=== PATIENT | female | born 1970 | race Hispanic/Latino ===

== ENCOUNTER → 2017-08-05 | Day surgery (SDC) | payer OTHER ==
[~2017-08-05] MED LIST: ATORVASTATIN CA20 MG PO; CEFAZOLIN SOD 1 GM VIAL ONE; DEXAMETHASONE SOD PHOS INJ 4 MG/ML VIAL ONE; DIOVAN160 MG PO; FARXIGA PO; FENTANYL CITRATE/PF 100MCG/2 ML INJ ONE; HYDROCHLOROTHIA25 MG PO; IOPAMIDOL 610MG/1ML 300 MG/ML VIAL IV ONE; LIDOCAINE HCL 2% LOCAL INJ 5 ML SDV VIAL INJ ONE; METFORMIN HCL500 MG PO; MIDAZOLAM HCL 2 MG/2 ML VIAL ONE; MUPIROCIN 2% OINT 22 GM TUBE ONE; ONDANSETRON HCL INJ 2 MG/ML VIAL ONE; PROPOFOL IV EMULSION 10 MG/ML 20 ML VIAL ONE; SEVOFLURANE INHAL SOLN 250 ML PEN BTL ONE
--- NOTE | 2017-08-05 17:07 | Operative Report ---
DATE OF PROCEDURE: August 05, 2017 PREOPERATIVE DIAGNOSES 1. Impacted stone in the upper ureter on the left side. 2. Left cutaneous nephrostomy. 3. Hydronephrosis on the left side. POSTOPERATIVE DIAGNOSES 1. Impacted stone in the upper ureter on the left side. 2. Left cutaneous nephrostomy. 3. Hydronephrosis on the left side. OPERATION PERFORMED: 1. Extracorporeal shock wave lithotripsy of left kidney stones. 2. Cystoscopy, left retrograde pyelogram and attempt to pass a wire and place a double J stent on the left side. 3. Interpretation of x-ray. Radiologist not present. 4. Supervision of fluoroscopy. BARBER STYLIST: None. ANESTHESIA: General. CLINICAL INDICATION NOTE: This is a 47-year-old patient who has an impacted stone in the upper ureter near the ureteropelvic junction. The stone is quite large, 2 x 1.5 cm. Attempt to pass a double J by the stone over wire from below was not successful. Attempt by interventional radiology to pass anything from above was also not successful. Patient was brought for lithotripsy with hope that if stone will be fragmented it may be possible to pass a double J stent from below, and the patient so advised. DESCRIPTION OF PROCEDURE AND FINDINGS: After appropriate level of anesthesia was achieved, the patient was placed in supine position and treated with 3000 shocks. Initially the first 300 were at a rate of 60 per minute and then it was increased to 90 and eventually to 120 per minute. After completing the lithotripsy, patient was placed in lithotomy position, prepped and draped in sterile fashion. Urethra inspected and is unremarkable. is normal. Bladder mucosa is normal. Open-end catheter was inserted to the left side and retrograde pyelogram did not pass . There was complete impaction of the stone. No contrast could be passed by the stone. Multiple attempts to inject dye and to try to pass very soft wires were not successful. Following this, a nephrostogram was done demonstrating hydronephrosis and again no contrast could be passed by the stone. Patient tolerated procedure well and was transferred in satisfactory condition to recovery room. Additional procedure will be planned to try to render her stone free. Job#: [id number]
== END | disposition home or self-care (01) ==
LOC: OR 09:15
PROVIDERS: ATTEND Urology
DX: N20.1 Calculus of ureter (principal); Z93.6 Other artificial openings of urinary tract status; N13.30 Unspecified hydronephrosis; I10 Essential (primary) hypertension; E11.9 Type 2 diabetes mellitus without complications
CPT/HCPCS: 36415; 50590; 81025; 82948; J0690; J1100; J2001; J2250; J2405; Q9967

== ENCOUNTER 2017-08-06 12:27 | Inpatient (IN) | payer OTHER ==
[2017-08-05 19:50] VITALS: BP 94/60
[~2017-08-06] VITALS: Ht 160 cm; Wt 74.9 kg
[~2017-08-06 12:27] MED LIST changes: -CEFAZOLIN SOD 1 GM VIAL ONE; -DEXAMETHASONE SOD PHOS INJ 4 MG/ML VIAL ONE; -FENTANYL CITRATE/PF 100MCG/2 ML INJ ONE; -IOPAMIDOL 610MG/1ML 300 MG/ML VIAL IV ONE; -LIDOCAINE HCL 2% LOCAL INJ 5 ML SDV VIAL INJ ONE; -MIDAZOLAM HCL 2 MG/2 ML VIAL ONE; -MUPIROCIN 2% OINT 22 GM TUBE ONE; -ONDANSETRON HCL INJ 2 MG/ML VIAL ONE; -PROPOFOL IV EMULSION 10 MG/ML 20 ML VIAL ONE; -SEVOFLURANE INHAL SOLN 250 ML PEN BTL ONE
[2017-08-06] MEDS ORDERED: ACETAMINOPHEN 325 MG TAB PO ONE (13:15)
[2017-08-06 14:51] LABS: BASOPHILS % 0.2 % (0.0-1.0); HEMATOCRIT 39.2 % (34.2-44.1); HEMOGLOBIN 13.5 g/dL (12.0-16.0); LYMPHOCYTES # (AUTO) 0.8 (1.0-3.2); MEAN CORPUSCULAR HEMOGLOBIN 30.4 pg (28-32); MEAN CORPUSCULAR HGB CONC 34.4 g/dL (31-35); MEAN CORPUSCULAR VOLUME 88.3 fL (81-99); MONOCYTES # (AUTO) 0.8 (0.2-0.8); MONOCYTES % 5.1 % (4.4-11.3); NEUTROPHILS # (AUTO) 14.5 (2.1-6.9); NEUTROPHILS % 89.4 % (38.7-80.0); PLATELET COUNT 217 x10e3/uL (140-360); RED BLOOD COUNT 4.44 x10e6/uL (3.6-5.1)
[2017-08-06 14:52] LABS: BILIRUBIN,URINE NEGATIVE (NEGATIVE); KETONES,URINE 3+ (NEGATIVE); LEUKOCYTE ESTERASE ,URINE 2+ (NEGATIVE); NITRITE,URINE NEGATIVE (NEGATIVE); URINE UROBILINOGEN 0.2 mg/dL (0.2 - 1)
[2017-08-06 14:53] LABS: CLARITY,URINE CLOUDY (CLEAR); COLOR,URINE YELLOW (YELLOW); PROTEIN,URINE DIPSTICK 2+ (NEGATIVE)
[2017-08-06 15:02] LABS: ALANINE AMINOTRANSFERASE 8 IU/L (0-55); ALBUMIN 3.9 g/dL (3.5-5.0); ALBUMIN/GLOBULIN RATIO 1.1 (0.8-2.0); ALKALINE PHOSPHATASE 81 IU/L (40-150); ANION GAP 16.8 mmol/L (8-16); BLOOD UREA NITROGEN 13 mg/dL (7-26); BUN/CREATININE RATIO 15 (6-25); CALCIUM 9.3 mg/dL (8.4-10.2); CARBON DIOXIDE 19 mmol/L (22-29); CHLORIDE 102 mmol/L (98-107); CREATININE, SERUM 0.85 mg/dL (0.57-1.11); EST GLOMERULAR FILTRATION RATE > 60 ML/MIN (60-); GLUCOSE 150 mg/dL (74-118); POTASSIUM 3.8 mmol/L (3.5-5.1); SODIUM 134 mmol/L (136-145)
[2017-08-06 15:28] LABS: BACTERIA,URINE MANY /HPF; EPITHELIAL CELLS,URINE FEW /LPF
--- NOTE | 2017-08-06 16:17 | Diagnostic Imaging Report ---
EXAM: CT Abdomen and Pelvis WITHOUT contrast INDICATION: Kidney stone. Fever and chills. COMPARISON: None. TECHNIQUE: Abdomen and pelvis were scanned utilizing a multidetector helical scanner from the lung base to the pubic symphysis without administration of IV contrast. Absence of intravenous contrast decreases sensitivity for detection of focal lesions and vascular pathology. Coronal and sagittal reformations were obtained. Renal stone protocol was performed. IV CONTRAST: None. ORAL CONTRAST: Water RADIATION DOSE: Total DLP: 507.76 mGy*cm Estimated effective dose: (DLP x 0.015 x size factor) mSv COMPLICATIONS: None FINDINGS: LINES and TUBES: Left sided nephrostomy tube with distal tip coiled within the left renal pelvis. LOWER THORAX: Bibasilar subsegmental atelectasis. HEPATOBILIARY: No focal hepatic lesions. No biliary ductal dilation. GALLBLADDER: No radio-opaque stones or sludge. No wall thickening. SPLEEN: No splenomegaly. PANCREAS: No focal masses or ductal dilatation. ADRENALS: No adrenal nodules KIDNEYS/URETERS: Left sided nephrostomy tube with distal tip coiled within the left renal pelvis. There is a 1.6 cm lobulated calculus within the left UPJ on coronal image 58 series 400, with possible adjacent smaller calculi. There is gas within the left lower pole collecting system likely related to the presence of nephrostomy tube and recent instrumentation. There is left perinephric stranding without perinephric fluid collections. GI TRACT: No abnormal distention, wall thickening, or evidence of bowel obstruction. Appendix is normal. PELVIC ORGANS/BLADDER: Unremarkable. LYMPH NODES: No lymphadenopathy. VESSELS: Unremarkable. PERITONEUM / RETROPERITONEUM: No free air or fluid. BONES: Unremarkable. SOFT TISSUES: Unremarkable. IMPRESSION: 1. 1.6 cm left UPJ renal calculus without hydronephrosis likely due to the presence of a left nephrostomy tube. Gas within the left lobe lower pole collecting system likely related to the presence of the nephrostomy tube and/or recent instrumentation. 2. Left perinephric stranding is a nonspecific finding which may be related to recent obstruction or recent percutaneous nephrostomy tube placement, however, superimposed infection cannot be excluded in this patient's clinical syndrome narrowing. No perinephric fluid collections. Signed by: Dr. Temo Grigsby M.D. on 08/06/2017 4:13 PM
[2017-08-06] MEDS ORDERED: CEFEPIME HCL 2 GM VIAL IV STA (16:53)
[2017-08-06] MEDS ORDERED: SODIUM CHLORIDE 0.9% 1000 ML BAG IV STA (16:54)
[2017-08-06] MEDS ORDERED: HYDROMORPHONE 1MG/1ML INJ IV PRN (17:15)
[2017-08-06] MEDS ORDERED: DEXTROSE 50% SYRINGE 50 ML IV PRN (17:15)
[2017-08-06] MEDS: ONDANSETRON HCL INJ 2 MG/ML VIAL IV PRN (19:50)
[2017-08-06 20:00] VITALS: BP 95/60
[2017-08-06] MEDS: SODIUM CHLORIDE 0.9% 1000ML 1,000 ML IV SCH (20:17)
[2017-08-06] MEDS: HYDROMORPHONE 2MG/ML INJ IV PRN (20:20)
[2017-08-06] MEDS: ACETAMINOPHEN 1000 MG/100 ML IV PRN (20:29)
[2017-08-06] MEDS: INSULIN REGULAR, HUMAN 100 UNIT/1 ML 3ML VIAL SQ SCH (21:00)
[2017-08-06 22:00] VITALS: BP 95/60
[2017-08-07] VITALS: BP 108/62
[2017-08-07 00:31] VITALS: BP 95/60
[2017-08-07] MEDS: SODIUM CHLORIDE 0.9% 1000ML 1,000 ML IV SCH ×3 (03:30→20:12)
[2017-08-07 04:00] VITALS: BP 110/91
[2017-08-07] MEDS: CEFEPIME HCL 2 GM VIAL IV SCH ×2 (05:50→17:00)
[2017-08-07] MEDS: ACETAMINOPHEN 1000 MG/100 ML IV PRN (06:02)
[2017-08-07 06:48] LABS: BASOPHILS % 0.3 % (0.0-1.0); HEMATOCRIT 33.7 % (34.2-44.1); HEMOGLOBIN 11.2 g/dL (12.0-16.0); LYMPHOCYTES # (AUTO) 1.2 (1.0-3.2); LYMPHOCYTES % 8.2 % (18.0-39.1); MEAN CORPUSCULAR HEMOGLOBIN 30.3 pg (28-32); MEAN CORPUSCULAR HGB CONC 33.2 g/dL (31-35); MEAN CORPUSCULAR VOLUME 91.1 fL (81-99); MONOCYTES # (AUTO) 0.9 (0.2-0.8); MONOCYTES % 6.3 % (4.4-11.3); NEUTROPHILS # (AUTO) 12.1 (2.1-6.9); NEUTROPHILS % 84.7 % (38.7-80.0); PLATELET COUNT 169 x10e3/uL (140-360); RED CELL DISTRIBUTION WIDTH 13.2 % (11.7-14.4)
[2017-08-07 07:16] LABS: ANION GAP 17.9 mmol/L (8-16); BLOOD UREA NITROGEN 16 mg/dL (7-26); BUN/CREATININE RATIO 22 (6-25); CALCIUM 8.1 mg/dL (8.4-10.2); CARBON DIOXIDE 14 mmol/L (22-29); CHLORIDE 109 mmol/L (98-107); CREATININE, SERUM 0.72 mg/dL (0.57-1.11); EST GLOMERULAR FILTRATION RATE > 60 ML/MIN (60-); GLUCOSE 90 mg/dL (74-118); POTASSIUM 3.9 mmol/L (3.5-5.1); SODIUM 137 mmol/L (136-145)
[2017-08-07] MEDS: INSULIN REGULAR, HUMAN 100 UNIT/1 ML 3ML VIAL SQ SCH ×4 (07:30→20:12)
[2017-08-07 08:00] VITALS: BP 103/61
[2017-08-07 12:00] VITALS: BP 119/64
[2017-08-07 16:00] VITALS: BP 97/59
[2017-08-07] MEDS: ACETAMINOPHEN 325 MG TAB PO PRN (18:03)
[2017-08-07] MEDS: HYDROMORPHONE 2MG/ML INJ IV PRN (20:11)
[2017-08-07] MEDS: ONDANSETRON HCL INJ 2 MG/ML VIAL IV PRN (20:12)
[2017-08-08] VITALS (7 sets, daily range): BP systolic 102–118; BP diastolic 60–78
[2017-08-08] MEDS: ONDANSETRON HCL INJ 2 MG/ML VIAL IV PRN ×2 (04:45→16:08)
[2017-08-08] MEDS: HYDROMORPHONE 2MG/ML INJ IV PRN ×2 (04:50→16:10)
[2017-08-08] MEDS: SODIUM CHLORIDE 0.9% 1000ML 1,000 ML IV SCH ×3 (05:34→21:03)
[2017-08-08] MEDS: CEFEPIME HCL 2 GM VIAL IV SCH ×2 (05:50→16:13)
[2017-08-08] MEDS ORDERED: BISACODYL 5 MG TAB EC PO SCH (07:30)
[2017-08-08] MEDS: INSULIN REGULAR, HUMAN 100 UNIT/1 ML 3ML VIAL SQ SCH ×4 (07:30→21:30)
[2017-08-09] VITALS: BP 119/77
[2017-08-09] MEDS: SODIUM CHLORIDE 0.9% 1000ML 1,000 ML IV SCH ×3 (00:03→18:35)
[2017-08-09] MEDS: ONDANSETRON HCL INJ 2 MG/ML VIAL IV PRN (04:40)
[2017-08-09] MEDS: CEFEPIME HCL 2 GM VIAL IV SCH ×2 (04:40→16:59)
[2017-08-09] MEDS: HYDROMORPHONE 2MG/ML INJ IV PRN ×2 (04:41→17:04)
[2017-08-09] MEDS: INSULIN REGULAR, HUMAN 100 UNIT/1 ML 3ML VIAL SQ SCH ×4 (07:30→20:31)
[2017-08-09 08:00] VITALS: BP 112/66
[2017-08-09 12:00] VITALS: BP 122/75
[2017-08-09 20:00] VITALS: BP 127/80
[2017-08-10] VITALS (8 sets, daily range): BP systolic 100–127; BP diastolic 56–83
[2017-08-10] MEDS: SODIUM CHLORIDE 0.9% 1000ML 1,000 ML IV SCH ×2 (02:07→09:00)
[2017-08-10] MEDS: CEFEPIME HCL 2 GM VIAL IV SCH ×2 (05:34→16:59)
[2017-08-10] MEDS: INSULIN REGULAR, HUMAN 100 UNIT/1 ML 3ML VIAL SQ SCH ×4 (07:30→20:52)
[2017-08-10] MEDS ORDERED: BISACODYL 5 MG TAB EC PO PRN (07:30)
[2017-08-10] MEDS: NITROFURANTOIN MACROCRYSTALS 100 MG CAP PO SCH ×2 (08:50→16:59)
[2017-08-10] MEDS: ACETAMINOPHEN/CODEINE 300MG - 30MG TAB PO PRN ×2 (09:00→13:00)
[2017-08-10] MEDS: ONDANSETRON HCL INJ 2 MG/ML VIAL IV PRN ×2 (11:56→16:55)
[2017-08-10] MEDS ORDERED: HYDROMORPHONE 1MG/1ML INJ IV PRN (13:45)
[2017-08-10] MEDS: FENTANYL 25 MCG/HR PATCH TOP SCH (14:18)
[2017-08-10] MEDS: HYDROMORPHONE 2MG/ML INJ IV PRN ×2 (15:32→20:44)
[2017-08-10] MEDS: ACETAMINOPHEN 325 MG TAB PO PRN (15:58)
[2017-08-10 16:43] LABS: BASOPHILS % 0.4 % (0.0-1.0); EOSINOPHILS % 0.6 % (0.0-6.0); HEMATOCRIT 35.6 % (34.2-44.1); LYMPHOCYTES # (AUTO) 0.2 (1.0-3.2); LYMPHOCYTES % 3.7 % (18.0-39.1); MEAN CORPUSCULAR HEMOGLOBIN 29.9 pg (28-32); MEAN CORPUSCULAR HGB CONC 33.7 g/dL (31-35); MEAN CORPUSCULAR VOLUME 88.8 fL (81-99); MONOCYTES # (AUTO) 0.1 (0.2-0.8); MONOCYTES % 2.2 % (4.4-11.3); NEUTROPHILS % 92.9 % (38.7-80.0); PLATELET COUNT 195 x10e3/uL (140-360); RED BLOOD COUNT 4.01 x10e6/uL (3.6-5.1); RED CELL DISTRIBUTION WIDTH 13.2 % (11.7-14.4)
[2017-08-10 17:02] LABS: INR 0.92; PARTIAL THROMBOPLASTIN TIME 28.3 seconds (23.8-35.5); PROTHROMBIN TIME 12.8 seconds (11.9-14.5)
[2017-08-10 17:11] LABS: ALANINE AMINOTRANSFERASE 27 IU/L (0-55); ALBUMIN 2.7 g/dL (3.5-5.0); ALBUMIN/GLOBULIN RATIO 0.8 (0.8-2.0); ALKALINE PHOSPHATASE 82 IU/L (40-150); BLOOD UREA NITROGEN < 5 mg/dL (7-26); CALCIUM 8.4 mg/dL (8.4-10.2); CARBON DIOXIDE 22 mmol/L (22-29); CHLORIDE 109 mmol/L (98-107); CREATININE, SERUM 0.63 mg/dL (0.57-1.11); EST GLOMERULAR FILTRATION RATE > 60 ML/MIN (60-); GLUCOSE 140 mg/dL (74-118); SODIUM 141 mmol/L (136-145)
[2017-08-10 17:12] LABS: BUN/CREATININE RATIO 8 (6-25)
[2017-08-10] MEDS ORDERED: POTASSIUM CHLORIDE 20 MEQ TAB CR PO STA (17:39)
[2017-08-10] MEDS ORDERED: FUROSEMIDE INJ 10 MG/ML 4 ML VIAL IV NR (18:00)
--- NOTE | 2017-08-10 18:03 | Diagnostic Imaging Report ---
PROCEDURE: A single AP view of the chest. COMPARISON: None. INDICATIONS: HYPOXIA FINDINGS: Lines/tubes: None. Lungs: Limited by body habitus and low lung volumes. Central peribronchovascular thickening/cuffing. Right midlung linear atelectasis/scarring. Pleura: There is no significant pleural effusion or pneumothorax. Heart and mediastinum: The cardiomediastinal silhouette is prominent. Bones: No acute bony abnormality. IMPRESSION: Central peribronchovascular thickening/cuffing with vascular congestion. Underlying infiltrate cannot be excluded. Dictated by: Rony Rhoades M.D. on 08/10/2017 at 18:12 Electronically approved by: Rony Rhoades M.D. on 08/10/2017 at 18:12
[2017-08-10 20:13] LABS: LYMPHOCYTES % (MANUAL) 4 % (19-48); METAMYELOCYTES % (MANUAL) 2 % (0-0); MONOCYTES % (MANUAL) 8 % (3.4-9.0); NEUTROPHILS % (MANUAL) 84 % (40-74)
[2017-08-10 20:14] LABS: PLATELET ESTIMATE ADEQUATE; PLATELET MORPHOLOGY COMMENT NORMAL; RBC MORPHOLOGY COMMENT NORMAL
[2017-08-10] MEDS: PIPER-TAZ 3.375 GM 50 ML IV SCH (20:44)
[2017-08-11] VITALS (7 sets, daily range): BP systolic 97–122; BP diastolic 58–73
[2017-08-11] MEDS: PIPER-TAZ 3.375 GM 50 ML IV SCH ×3 (05:43→21:10)
[2017-08-11] MEDS: ACETAMINOPHEN 325 MG TAB PO PRN (06:01)
[2017-08-11] MEDS: INSULIN REGULAR, HUMAN 100 UNIT/1 ML 3ML VIAL SQ SCH ×4 (07:30→21:00)
[2017-08-11 08:16] LABS: BASOPHILS # (AUTO) 0.1 (0.0-0.1); BASOPHILS % 0.4 % (0.0-1.0); EOSINOPHILS # (AUTO) 0.2 (0.0-0.4); EOSINOPHILS % 1.4 % (0.0-6.0); HEMATOCRIT 30.1 % (34.2-44.1); LYMPHOCYTES # (AUTO) 0.9 (1.0-3.2); LYMPHOCYTES % 6.6 % (18.0-39.1); MEAN CORPUSCULAR HEMOGLOBIN 30.7 pg (28-32); MEAN CORPUSCULAR HGB CONC 34.6 g/dL (31-35); MEAN CORPUSCULAR VOLUME 88.8 fL (81-99); MONOCYTES # (AUTO) 0.7 (0.2-0.8); MONOCYTES % 4.7 % (4.4-11.3); PLATELET COUNT 183 x10e3/uL (140-360); RED BLOOD COUNT 3.39 x10e6/uL (3.6-5.1); RED CELL DISTRIBUTION WIDTH 13.2 % (11.7-14.4)
[2017-08-11 08:20] LABS: HEMOGLOBIN 10.4 g/dL (12.0-16.0)
[2017-08-11 08:29] LABS: INR 1.23; PROTHROMBIN TIME 16.1 seconds (11.9-14.5)
[2017-08-11 08:33] LABS: ANION GAP 11.9 mmol/L (8-16); BLOOD UREA NITROGEN 5 mg/dL (7-26); BUN/CREATININE RATIO 8 (6-25); CALCIUM 8.2 mg/dL (8.4-10.2); CARBON DIOXIDE 25 mmol/L (22-29); CHLORIDE 104 mmol/L (98-107); CREATININE, SERUM 0.63 mg/dL (0.57-1.11); EST GLOMERULAR FILTRATION RATE > 60 ML/MIN (60-); GLUCOSE 96 mg/dL (74-118); SODIUM 138 mmol/L (136-145)
[2017-08-11 08:37] LABS: POTASSIUM 2.9 mmol/L (3.5-5.1)
[2017-08-11] MEDS: NITROFURANTOIN MACROCRYSTALS 100 MG CAP PO SCH ×2 (08:49→16:51)
[2017-08-11] MEDS ORDERED: POTASSIUM CHLORIDE 20 MEQ TAB CR PO STA (09:08)
--- NOTE | 2017-08-11 09:43 | Diagnostic Imaging Report ---
PROCEDURE:X-RAY ABDOMEN - KUB COMPARISON:CT abdomen and pelvis 08/06/2017. INDICATIONS:PYELONEPHRITIS FINDINGS: Left nephrostomy catheter is present with the tip projecting over the expected region of the left renal pelvis. Calculi are present in the left renal pelvis. There is a non-obstructed bowel-gas pattern. There are no calcifications projected over the right renal shadow, expected course of the ureters or bladder. There are no acute osseous abnormalities. The lung bases are clear. CONCLUSION: Left nephrolithiasis. Left nephrostomy catheter. Dictated by: See Phipps M.D. on 08/11/2017 at 9:52 Electronically approved by: See Phipps M.D. on 08/11/2017 at 9:52
--- NOTE | 2017-08-11 13:46 | Consultation ---
DATE OF CONSULTATION: August 10, 2017 PULMONARY CONSULTATION REASON FOR CONSULTATION: Hypoxia. HPI: Ms. Meek is a 47-year-old female who was admitted for kidney stones and UTI. She was septic with UTI. Patient underwent nephrostomy tube placement. Her fever was 102. She failed stent attempt and was admitted with pyelonephritis. Patient was continued on IV antibiotics. Today I was called as patient is hypoxic. She is a lifelong nonsmoker. Denies any history of asthma. She does not smoke and does not drink. REVIEW OF SYSTEMS: GENERAL: Denies any fever or chills. HEAD: Denies any head trauma or head injury. ENT: Denies any earaches. CVS: Denies any chest pain. RESPIRATORY: Denies any shortness of breath. The patient was hypoxic. GI: Denies any nausea or vomiting. MUSCULOSKELETAL: Denies any arthralgias or myalgias. The rest of the review of systems are negative except in the HPI. PAST MEDICAL HISTORY: Diabetes, hypertension and hyperlipidemia. PAST SURGICAL HISTORY: Nephrostomy tube placement. FAMILY AND SOCIAL HISTORY: She does not smoke or drink. She lives with her . PHYSICAL EXAMINATION: VITALS: Temperature 100.9, pulse of 108, blood pressure 100/56 respiratory rate 18. HEENT: Head is atraumatic and normocephalic. Pupils are reactive. NECK: Supple. CHEST: Reduced air entry bilaterally, almost absent breath sounds on the bases. ABDOMEN: Soft, nontender and nondistended. EXTREMITIES: Trace pedal edema. NEUROLOGIC: Awake and alert. She has a nephrostomy tube. LABORATORY DATA: White count of 5,000, it was 16,000 on admission. Platelets 195. Chemistry: Sodium 141, potassium 3.0. BUN less than 5. Creatinine 0.63 and on admission creatinine was 0.85. I's and O's revealed that she is at least positive for 3 to 4 liters. Urine culture Enterobacter, E. coli faecalis. ASSESSMENT AND PLAN: Ms. Peggy Meek is a 47-year-old female. She came in with pyelonephritis. The patient had kidney stones. According to neurology note, the patient had failed stent attempt and nephrostomy was done. At this time, I think the hypoxia is likely due to fluid overload where she has developed pneumonia. There is no chest x-ray on the chart at this point. She was also getting IV fluid as well. PLAN: 1. I will give her Lasix IV 40 mg now. 2. Change the antibiotic to IV Zosyn. 3. Give one dose of vancomycin. 4. Nebulizer treatment. 5. Further recommendations after reviewing the chest x-ray. Job#: [id number] GH
[2017-08-11] MEDS ORDERED: POTASSIUM CHLORIDE 20 MEQ TAB CR PO SCH ×2 (15:00)
[2017-08-11] MEDS: HYDROCODONE/APAP 10MG-325MG TAB PO PRN ×2 (16:53→21:31)
[2017-08-12 00:50] VITALS: BP 107/63
[2017-08-12] MEDS: PIPER-TAZ 3.375 GM 50 ML IV SCH ×2 (05:21→16:00)
[2017-08-12 05:31] VITALS: BP 103/69
[2017-08-12 07:05] LABS: HEMATOCRIT 33.2 % (34.2-44.1); HEMOGLOBIN 11.1 g/dL (12.0-16.0); MEAN CORPUSCULAR HEMOGLOBIN 30.1 pg (28-32); MEAN CORPUSCULAR HGB CONC 33.4 g/dL (31-35); PLATELET COUNT 232 x10e3/uL (140-360); RED BLOOD COUNT 3.69 x10e6/uL (3.6-5.1); RED CELL DISTRIBUTION WIDTH 13.2 % (11.7-14.4)
[2017-08-12 07:26] LABS: ANION GAP 13.5 mmol/L (8-16); BLOOD UREA NITROGEN 6 mg/dL (7-26); BUN/CREATININE RATIO 10 (6-25); CALCIUM 9.2 mg/dL (8.4-10.2); CARBON DIOXIDE 27 mmol/L (22-29); CHLORIDE 102 mmol/L (98-107); CREATININE, SERUM 0.62 mg/dL (0.57-1.11); EST GLOMERULAR FILTRATION RATE > 60 ML/MIN (60-); GLUCOSE 142 mg/dL (74-118); MAGNESIUM 1.8 MG/DL (1.3-2.1); POTASSIUM 3.5 mmol/L (3.5-5.1); SODIUM 139 mmol/L (136-145)
[2017-08-12] MEDS: INSULIN REGULAR, HUMAN 100 UNIT/1 ML 3ML VIAL SQ SCH ×4 (07:30→21:00)
[2017-08-12 07:56] VITALS: BP 104/55
[2017-08-12] MEDS: NITROFURANTOIN MACROCRYSTALS 100 MG CAP PO SCH ×2 (09:00→16:24)
[2017-08-12 09:29] LABS: BLAST CELLS % MANUAL 1; EOSINOPHILS % (MANUAL) 9 % (0-7); LYMPHOCYTES % (MANUAL) 12 % (19-48); MONOCYTES % (MANUAL) 1 % (3.4-9.0); MYELOCYTES % (MANUAL) 1 % (0-0); NEUTROPHILS % (MANUAL) 76 % (40-74)
[2017-08-12 09:30] LABS: ANISOCYTOSIS SLIGHT; HOWELL-JOLLY BODIES FEW; PLATELET ESTIMATE ADEQUATE; PLATELET MORPHOLOGY COMMENT NORMAL; RBC MORPHOLOGY COMMENT NORMAL
[2017-08-12 11:37] VITALS: BP 113/69
[2017-08-12] MEDS: HYDROCODONE/APAP 10MG-325MG TAB PO PRN ×2 (12:01→21:54)
[2017-08-12] MEDS: ONDANSETRON HCL INJ 2 MG/ML VIAL IV PRN ×2 (12:01→21:54)
[2017-08-12] MEDS: ACETAMINOPHEN 325 MG TAB PO PRN ×2 (16:15→22:57)
[2017-08-12 16:25] VITALS: BP 161/81
--- NOTE | 2017-08-12 18:29 | Diagnostic Imaging Report ---
PROCEDURE: A single AP view of the chest. COMPARISON: Patients [facility], DX, CHEST SINGLE (PORTABLE), 08/10/2017, 17:56. INDICATIONS: PICC PLACEMENT FINDINGS: See impression. IMPRESSION: 1. interval placement of right-sided PICC line, with distal tip projecting near the cavoatrial junction. 2. Hypoinflated lungs with bibasilar atelectatic changes. There is obscuration of the medial left hemidiaphragm and left retrocardiac density, which may reflect atelectasis or consolidation. 3. Prominence of the cardiac silhouette, which is accentuated by low lung volumes. Dustin Benoit M.D. Dictated by: Dustin Benoit M.D. on 08/12/2017 at 18:38 Electronically approved by: Dustin Benoit M.D. on 08/12/2017 at 18:38
[2017-08-12] MEDS ORDERED: VANCOMYCIN 1GM/NS 250 ML 250 ML IV SCH (18:30)
[2017-08-12] MEDS ORDERED: FUROSEMIDE INJ 10 MG/ML 4 ML VIAL IV ONE (18:30)
[2017-08-12 20:00] VITALS: BP 119/77
[2017-08-12] MEDS: AMOXICILLIN 250 MG CAP PO SCH (20:09)
--- NOTE | 2017-08-12 23:20 | Consultation ---
DATE OF CONSULTATION: August 12, 2017 REASON FOR CONSULTATION: UTI. Recommendation antibiotic. HISTORY OF PRESENT ILLNESS: This is a 47-year-old female with history of kidney stone, history of UTI, history of sepsis. Patient apparently was admitted on August 06, 2017. Patient comes in with fever and chills. She had fever 102. She had nephrostomy tube placement and she failed stent attempt, was admitted with fever and chills, on IV antibiotic. Infectious disease was consulted today. This patient has history of diabetes mellitus, hypertension, hyperlipidemia. PAST SURGICAL HISTORY: Nephrostomy on the left. ALLERGIES: NKA. SOCIAL HISTORY: There is no smoking, drug abuse, alcohol abuse. FAMILY HISTORY: Otherwise unremarkable. LABORATORY DATA: Blood cultures are negative so far. Her urine showed Enterobacter cloacae and Enterococcus faecalis. White count is 15.1, went up 16.2, hemoglobin of 13, hematocrit 39. Sodium 139, potassium 3.5, creatinine 0.62. MEDICATIONS: She is on insulin, Macrobid, Zosyn, vancomycin. PHYSICAL EXAMINATION GENERAL: She is currently alert, oriented, does not seem to be in acute distress. VITALS: Stable. Currently afebrile. HEENT: She is not icteric. Normocephalic. NECK: Supple. No JVD, no , no thyromegaly. CHEST: Clear bilateral, coarse. HEART: S1, S2. murmur. ABDOMEN: Soft with some tenderness present. IMPRESSION: Urinary tract infection with Enterobacter cloacae. Would suggest to put her on Rocephin and 2 g daily. Will arrange for intravenous antibiotic. She will have a peripherally inserted central catheter line. Discontinue the antibiotic. I am concerned about her leukocytosis. Recheck complete blood count and chemistry panel. Will give her oral amoxicillin. She has nephrostomy tube, which is being addressed by urology. Will follow with you. Job#: [id number] CQ
[2017-08-13] VITALS: BP 103/67
[2017-08-13] MEDS: AMOXICILLIN 250 MG CAP PO SCH ×3 (05:45→21:50)
[2017-08-13] MEDS: INSULIN REGULAR, HUMAN 100 UNIT/1 ML 3ML VIAL SQ SCH ×4 (08:00→21:40)
[2017-08-13] MEDS: FUROSEMIDE INJ 10 MG/ML 4 ML VIAL IV SCH ×2 (08:30→17:45)
[2017-08-13] MEDS: CEFTRIAXONE SOD 1 GM VIAL IV SCH (08:45)
[2017-08-13] MEDS ORDERED: FUROSEMIDE INJ 10 MG/ML 4 ML VIAL IV SCH (09:00)
[2017-08-13 10:40] VITALS: BP 117/66
[2017-08-13] MEDS: FENTANYL 25 MCG/HR PATCH TOP SCH (14:20)
[2017-08-13 16:58] VITALS: BP 118/72
[2017-08-13 20:00] VITALS: BP 116/78
[2017-08-14] VITALS: BP 128/85
[2017-08-14 04:00] VITALS: BP 109/75
[2017-08-14] MEDS: AMOXICILLIN 250 MG CAP PO SCH ×3 (06:10→22:06)
[2017-08-14 06:42] LABS: BASOPHILS % 0.5 % (0.0-1.0); EOSINOPHILS # (AUTO) 0.6 (0.0-0.4); EOSINOPHILS % 9.9 % (0.0-6.0); HEMATOCRIT 35.9 % (34.2-44.1); LYMPHOCYTES # (AUTO) 2.2 (1.0-3.2); LYMPHOCYTES % 36.2 % (18.0-39.1); MEAN CORPUSCULAR HEMOGLOBIN 29.6 pg (28-32); MEAN CORPUSCULAR HGB CONC 33.4 g/dL (31-35); MEAN CORPUSCULAR VOLUME 88.4 fL (81-99); MONOCYTES # (AUTO) 0.5 (0.2-0.8); MONOCYTES % 8.6 % (4.4-11.3); NEUTROPHILS # (AUTO) 2.7 (2.1-6.9); NEUTROPHILS % 44.1 % (38.7-80.0); PLATELET COUNT 257 x10e3/uL (140-360); RED BLOOD COUNT 4.06 x10e6/uL (3.6-5.1); RED CELL DISTRIBUTION WIDTH 12.9 % (11.7-14.4)
[2017-08-14 07:07] LABS: ANION GAP 18.1 mmol/L (8-16); BLOOD UREA NITROGEN 12 mg/dL (7-26); BUN/CREATININE RATIO 19 (6-25); CALCIUM 9.8 mg/dL (8.4-10.2); CARBON DIOXIDE 29 mmol/L (22-29); CHLORIDE 95 mmol/L (98-107); CREATININE, SERUM 0.63 mg/dL (0.57-1.11); EST GLOMERULAR FILTRATION RATE > 60 ML/MIN (60-); GLUCOSE 128 mg/dL (74-118); POTASSIUM 3.1 mmol/L (3.5-5.1); SODIUM 139 mmol/L (136-145)
[2017-08-14] MEDS: INSULIN REGULAR, HUMAN 100 UNIT/1 ML 3ML VIAL SQ SCH ×4 (07:30→22:02)
[2017-08-14 08:00] VITALS: BP 123/70
[2017-08-14] MEDS: CEFTRIAXONE SOD 1 GM VIAL IV SCH (09:00)
[2017-08-14] MEDS: FUROSEMIDE INJ 10 MG/ML 4 ML VIAL IV SCH ×3 (09:00→22:07)
[2017-08-14] MEDS ORDERED: IOPAMIDOL 610MG/1ML 300 MG/ML VIAL IV ONE (10:53)
[2017-08-14] MEDS ORDERED: BELLADONNA/OPIUM 60 MG SUPP PR ONE (10:53)
[2017-08-14] MEDS ORDERED: MUPIROCIN 2% OINT 22 GM TUBE ONE (11:53)
[2017-08-14] MEDS ORDERED: SEVOFLURANE INHAL SOLN 250 ML PEN BTL ONE (14:55)
[2017-08-14] MEDS ORDERED: LIDOCAINE HCL 2% LOCAL INJ 5 ML SDV VIAL INJ ONE (14:55)
[2017-08-14] MEDS ORDERED: ONDANSETRON HCL INJ 2 MG/ML VIAL ONE (14:55)
[2017-08-14] MEDS ORDERED: DEXAMETHASONE SOD PHOS INJ 4 MG/ML VIAL ONE (14:55)
[2017-08-14] MEDS ORDERED: PROPOFOL IV EMULSION 10 MG/ML 20 ML VIAL ONE (14:55)
[2017-08-14 15:53] VITALS: BP 120/67
[2017-08-14] MEDS ORDERED: MIDAZOLAM HCL 2 MG/2 ML VIAL ONE (18:43)
[2017-08-14] MEDS ORDERED: FENTANYL CITRATE/PF 100MCG/2 ML INJ ONE (18:43)
[2017-08-14 20:23] VITALS: BP 104/68
[2017-08-15] VITALS (7 sets, daily range): BP systolic 121–129; BP diastolic 68–75
[2017-08-15] MEDS: FUROSEMIDE INJ 10 MG/ML 4 ML VIAL IV SCH ×3 (05:39→22:01)
[2017-08-15] MEDS: AMOXICILLIN 250 MG CAP PO SCH ×2 (05:39→14:00)
[2017-08-15] MEDS: HYDROCODONE/APAP 10MG-325MG TAB PO PRN (05:54)
[2017-08-15] MEDS: INSULIN REGULAR, HUMAN 100 UNIT/1 ML 3ML VIAL SQ SCH ×4 (07:30→22:36)
[2017-08-15 07:38] LABS: BASOPHILS % 0.3 % (0.0-1.0); EOSINOPHILS # (AUTO) 0.1 (0.0-0.4); EOSINOPHILS % 0.9 % (0.0-6.0); HEMATOCRIT 35.4 % (34.2-44.1); HEMOGLOBIN 12.2 g/dL (12.0-16.0); LYMPHOCYTES % 16.4 % (18.0-39.1); MEAN CORPUSCULAR HEMOGLOBIN 29.8 pg (28-32); MEAN CORPUSCULAR HGB CONC 34.5 g/dL (31-35); MEAN CORPUSCULAR VOLUME 86.6 fL (81-99); MONOCYTES # (AUTO) 0.9 (0.2-0.8); MONOCYTES % 7.4 % (4.4-11.3); NEUTROPHILS # (AUTO) 9.1 (2.1-6.9); NEUTROPHILS % 74.2 % (38.7-80.0); PLATELET COUNT 286 x10e3/uL (140-360); RED BLOOD COUNT 4.09 x10e6/uL (3.6-5.1); RED CELL DISTRIBUTION WIDTH 12.7 % (11.7-14.4)
[2017-08-15 08:05] LABS: ANION GAP 16.1 mmol/L (8-16); BLOOD UREA NITROGEN 12 mg/dL (7-26); BUN/CREATININE RATIO 16 (6-25); CALCIUM 9.1 mg/dL (8.4-10.2); CARBON DIOXIDE 29 mmol/L (22-29); CHLORIDE 95 mmol/L (98-107); CREATININE, SERUM 0.73 mg/dL (0.57-1.11); EST GLOMERULAR FILTRATION RATE > 60 ML/MIN (60-); GLUCOSE 202 mg/dL (74-118); MAGNESIUM 1.8 MG/DL (1.3-2.1); POTASSIUM 3.1 mmol/L (3.5-5.1); SODIUM 137 mmol/L (136-145)
[2017-08-15] MEDS: PANTOPRAZOLE SOD 40 MG TABEC PO SCH (08:45)
[2017-08-15] MEDS: CEFTRIAXONE SOD 1 GM VIAL IV SCH (09:00)
[2017-08-15] MEDS ORDERED: VANCOMYCIN 1GM/NS 250 ML 250 ML IV SCH (14:15)
--- NOTE | 2017-08-15 15:35 | Diagnostic Imaging Report ---
EXAM: CT Chest WITHOUT contrast 08/15/2017 2:09 PM INDICATION: \S\hypoxia ? Pneumonia COMPARISON: Chest radiograph from 08/12/2017 TECHNIQUE: Chest was scanned utilizing a multidetector helical scanner from the lung apex through the level of the adrenal glands without administration of IV contrast. Absence of intravenous contrast decreases sensitivity for detection of lymphadenopathy and vascular pathology. Coronal and sagittal reformations were obtained. Routine protocol was performed. IV CONTRAST: None COMPLICATIONS: None RADIATION DOSE: Total DLP: 423.2 mGy*cm Estimated effective dose: (DLP x 0.015 x size factor) mSv CTDIvol has been reviewed. It is below the limits set by the Radiation Protocol Committee (RPC). FINDINGS: LINES/ TUBES: Partially visualized right PICC with tip in the cavoatrial junction. LUNGS AND AIRWAYS: Moderate sized bilateral lower lobes consolidation with air bronchograms without significant volume loss suggestive of aspiration or pneumonia. Bilateral interstitial edema. Airways are normal. PLEURA: The pleural spaces are clear. HEART AND MEDIASTINUM: The thyroid gland is normal. No mediastinal, hilar or axillary lymphadenopathy. The left ventricle appears mildly prominent. Small pericardial effusion. The thoracic aorta and pulmonary arteries are unremarkable. UPPER ABDOMEN: There appears to be mild hydronephrosis on the left in this patient with prior obstructing renal stone. BONES: The visualized bony thorax is within normal limits. SOFT TISSUES: Unremarkable. IMPRESSION: Moderate sized bilateral lower lobe consolidations suggestive of pneumonia or aspiration. Signed by: Dr. Talia Rincon M.D. on 08/15/2017 3:32 PM
[2017-08-15] MEDS: PIPER-TAZ 3.375 GM 50 ML IV SCH (22:01)
[2017-08-16] VITALS (7 sets, daily range): BP systolic 109–123; BP diastolic 63–89
[2017-08-16] MEDS: HYDROCODONE/APAP 10MG-325MG TAB PO PRN (04:57)
[2017-08-16] MEDS: PIPER-TAZ 3.375 GM 50 ML IV SCH ×3 (05:06→21:48)
[2017-08-16] MEDS: FUROSEMIDE INJ 10 MG/ML 4 ML VIAL IV SCH ×3 (05:33→21:48)
[2017-08-16] MEDS: VANCOMYCIN 1GM/NS 250 ML 250 ML IV SCH ×2 (05:33→18:00)
[2017-08-16 06:50] LABS: BASOPHILS % 0.4 % (0.0-1.0); EOSINOPHILS # (AUTO) 0.3 (0.0-0.4); EOSINOPHILS % 3.3 % (0.0-6.0); HEMATOCRIT 37.7 % (34.2-44.1); HEMOGLOBIN 12.8 g/dL (12.0-16.0); LYMPHOCYTES % 30.2 % (18.0-39.1); MEAN CORPUSCULAR HEMOGLOBIN 29.7 pg (28-32); MEAN CORPUSCULAR VOLUME 87.5 fL (81-99); MONOCYTES # (AUTO) 0.8 (0.2-0.8); MONOCYTES % 8.2 % (4.4-11.3); NEUTROPHILS # (AUTO) 5.5 (2.1-6.9); NEUTROPHILS % 56.4 % (38.7-80.0); PLATELET COUNT 282 x10e3/uL (140-360); RED BLOOD COUNT 4.31 x10e6/uL (3.6-5.1); RED CELL DISTRIBUTION WIDTH 12.7 % (11.7-14.4)
[2017-08-16] MEDS: INSULIN REGULAR, HUMAN 100 UNIT/1 ML 3ML VIAL SQ SCH ×4 (07:30→21:49)
[2017-08-16] MEDS: PANTOPRAZOLE SOD 40 MG TABEC PO SCH (07:30)
[2017-08-16] MEDS: CEFTRIAXONE SOD 1 GM VIAL IV SCH (09:00)
[2017-08-16] MEDS ORDERED: SODIUM CHLORIDE 0.9% 250ML 250 ML ONE ×2 (13:43→21:40)
[2017-08-17 01:40] VITALS: BP 109/63
[2017-08-17 04:50] VITALS: BP 120/73
[2017-08-17] MEDS: FUROSEMIDE INJ 10 MG/ML 4 ML VIAL IV SCH (05:38)
[2017-08-17] MEDS: PIPER-TAZ 3.375 GM 50 ML IV SCH (05:38)
[2017-08-17 05:47] LABS: BASOPHILS # (AUTO) 0.1 (0.0-0.1); BASOPHILS % 0.7 % (0.0-1.0); EOSINOPHILS # (AUTO) 0.4 (0.0-0.4); EOSINOPHILS % 3.9 % (0.0-6.0); HEMATOCRIT 38.2 % (34.2-44.1); LYMPHOCYTES # (AUTO) 2.8 (1.0-3.2); LYMPHOCYTES % 28.3 % (18.0-39.1); MEAN CORPUSCULAR HEMOGLOBIN 29.7 pg (28-32); MEAN CORPUSCULAR VOLUME 87.4 fL (81-99); MONOCYTES # (AUTO) 0.8 (0.2-0.8); NEUTROPHILS # (AUTO) 5.6 (2.1-6.9); NEUTROPHILS % 57.9 % (38.7-80.0); PLATELET COUNT 273 x10e3/uL (140-360); RED BLOOD COUNT 4.37 x10e6/uL (3.6-5.1); RED CELL DISTRIBUTION WIDTH 12.8 % (11.7-14.4)
[2017-08-17 06:06] LABS: ALANINE AMINOTRANSFERASE 6 IU/L (0-55); ALBUMIN/GLOBULIN RATIO 0.7 (0.8-2.0); ALKALINE PHOSPHATASE 76 IU/L (40-150); ANION GAP 13.9 mmol/L (8-16); BLOOD UREA NITROGEN 13 mg/dL (7-26); BUN/CREATININE RATIO 16 (6-25); CALCIUM 9.1 mg/dL (8.4-10.2); CARBON DIOXIDE 29 mmol/L (22-29); CHLORIDE 96 mmol/L (98-107); CREATININE, SERUM 0.79 mg/dL (0.57-1.11); EST GLOMERULAR FILTRATION RATE > 60 ML/MIN (60-); GLUCOSE 168 mg/dL (74-118); SODIUM 136 mmol/L (136-145)
[2017-08-17 06:16] LABS: POTASSIUM 2.9 mmol/L (3.5-5.1)
[2017-08-17] MEDS ORDERED: POTASSIUM CHLORIDE 20 MEQ TAB CR PO ONE ×2 (06:45→10:00)
[2017-08-17] MEDS: VANCOMYCIN 1GM/NS 250 ML 250 ML IV SCH ×2 (06:50→17:30)
[2017-08-17] MEDS: PANTOPRAZOLE SOD 40 MG TABEC PO SCH (07:30)
[2017-08-17] MEDS: INSULIN REGULAR, HUMAN 100 UNIT/1 ML 3ML VIAL SQ SCH ×4 (07:30→20:45)
[2017-08-17 08:00] VITALS: BP 125/85
[2017-08-17] MEDS: CEFTRIAXONE SOD 1 GM VIAL IV SCH (09:00)
[2017-08-17 12:00] VITALS: BP 114/83
[2017-08-17 16:00] VITALS: BP 131/84
[2017-08-17 20:00] VITALS: BP 144/80
[2017-08-17] MEDS: CEFEPIME HCL 1 GM VIAL IV SCH (20:44)
[2017-08-18] VITALS: BP 127/61
[2017-08-18] MEDS: CEFEPIME HCL 1 GM VIAL IV SCH ×2 (02:30→10:00)
[2017-08-18 04:00] VITALS: BP 121/70
[2017-08-18] MEDS: VANCOMYCIN 1GM/NS 250 ML 250 ML IV SCH (05:17)
[2017-08-18 07:30] VITALS: BP 125/72
[2017-08-18] MEDS: INSULIN REGULAR, HUMAN 100 UNIT/1 ML 3ML VIAL SQ SCH (07:30)
[2017-08-18] MEDS: PANTOPRAZOLE SOD 40 MG TABEC PO SCH (07:30)
[2017-08-18 08:14] VITALS: BP 125/72
[2017-08-18 12:14] VITALS: BP 120/79
--- NOTE | 2017-09-21 17:17 | Consultation ---
DATE OF CONSULTATION: August 10, 2017 PAIN MANAGEMENT CONSULT REASON FOR FOLLOWUP: Pain management. SUBJECTIVE: The patient is a 47-year-old female with history of multiple issues, abdominal pain, ongoing pain with back pain and kidney stone in the past. She was being septic with urinary tract infection. She underwent nephrostomy tube placement, fever spike to 102 when she came in. She is a lifelong nonsmoker. Pain is 10/10 on the scale 0 to 10; 0 being none and 10 being worst. Pain is constant, aching, dull, sharp, shooting, burning, and stabbing pain. REVIEW OF SYSTEMS: Had some fever yesterday. Denies any head trauma or head injury. No seizure. No syncope. No ear problem. No chest pain. No shortness of breath. No nausea or vomiting. She does have generalized pain all over the body. Otherwise, rest of the review of systems are negative except as in the history of present illness. PAST MEDICAL HISTORY 1. Diabetes. 2. Hypertension. 3. Hyperlipidemia. 4. Morbid obesity. PAST SURGICAL HISTORY: Nephrostomy tube in place. FAMILY AND SOCIAL HISTORY: Does not smoke or drink. She lives with her . PHYSICAL EXAMINATION GENERAL: The patient is in pain, but not in acute distress. VITAL SIGNS: Within normal limits. HEENT: Normocephalic. NECK: Supple. LUNGS: Clear bilaterally. HEART: Regular rate and rhythm. ABDOMEN: Soft and nontender. EXTREMITIES: No edema. NEUROLOGIC: Grossly nonfocal. LAB DATA: Reviewed. ASSESSMENT AND PLAN: She is being managed her pain by Dr. Arya Mosley, who gave her pain medicine for the home use also and I am being consulted for the hospital due to excruciating pain. Patient was seen today and examined. Consult care plan discussed in detail. She does understand the care plan. Possibility of the opioid dependence cannot be ruled out. We will continue supportive care. We will follow her closely. Job#: [id number] VAS
--- NOTE | 2017-10-01 02:21 | Operative Report ---
DATE OF PROCEDURE: August 14, 2017 PREOPERATIVE DIAGNOSES 1. Large left proximal ureterolithiasis. 2. Left nephrostomy tube in place. POSTOPERATIVE DIAGNOSES 1. Large left proximal ureterolithiasis. 2. Left nephrostomy tube in place. 3. Cystocele. 4. Urethral hypermobility. OPERATIVE PROCEDURES PERFORMED: Note these were all staged procedures as part of multistage, multistep process in managing the patient's urolithiasis. 1. Cystourethroscopy with left ureteral catheterization and retrograde ureteropyelography with left ureteroscopy, Holmium laser lithotripsy and placement of stent (separate procedure performed for diagnosis of the stone). 2. Radiological services for supervision and interpretation of the ureteroscopy. 3. Supervision of fluoroscopy. No radiologist present. 4. Removal of nephrostomy under fluoroscopic guidance. 5. Interpretation of retrograde ureteropyelography. 6. Pelvic examination under anesthesia. ANESTHESIA: General. COMPLICATIONS: None. CLINICAL SUMMARY: Please refer to the chart. Peggy Meek is a woman with a complicated and impacted stone that was refractory to prior treatment attempt. She has a nephrostomy tube in place. The hopes today is to be able to remove her nephrostomy and replace it with an indwelling stent. She is aware of the risks of bleeding, infection, injury to adjacent structures, the fact that she will need temporary indwelling urethral stent and the fact that she will have to have followup. She understood all these risks and elected to proceed. OPERATIVE PROCEDURE IN DETAIL: Informed consent was verified. Peggy Meek was properly identified, taken to the operating room, placed on the cystoscopy table in supine position. Anesthesia was uneventfully begun. The patient was then carefully and gently repositioned in the dorsal lithotomy position with all pressure points well padded. Her genitalia were prepared and draped in usual sterile fashion. The 22.5-Lao cystoscope sheath with obturator in place was atraumatically inserted into the patient's urethra and the bladder was drained. Panendoscopy revealed no suspicious mucosal lesions. There were no tumors. There were no diverticula. We cannulated the left ureteral orifice. We were able to bring flexible ureteroscope over the guidewire. Contrast was injected performing retrograde pyelograms. We negotiated the ureteroscope to the level of the patient's very large and multiple proximal ureteral stones. We proceeded with performing Holmium laser lithotripsy and pulverizing all these stones into smaller more passable stones. A large collection of significant gravel was performed. We were able to enter the patient's intrarenal collecting system. Contrast was injected. Guidewire was left in place. With cystoscopic and fluoroscopic guidance, a left-sided indwelling ureteral stent was then placed with a coil in the patient's kidney as well as the patient's bladder at the end of the case. Interpretation of retrograde ureteropyelography: Contrast was instilled in a retrograde fashion on the left hand side. There was fullness of the collecting system. There was no extravasation. The stones were identified as filling defects and seemed well fragmented at the end of the case. The stent was in good position, coiled in the patient's kidney as well as the patient's bladder at the end of the case. We then disconnected the suture of the nephrostomy tube. We unlocked nephrostomy tube under fluoroscopic guidance. We removed the nephrostomy tube taking care to ensure that the stent was not displaced. We then verified fluoroscopically that the stent was in good position, coiled in the patient's kidney as well as the patient's bladder. The patient's bladder was then drained. Cystoscope was withdrawn. Pelvic examination under anesthesia revealed a cystocele with urethral hypermobility. No abnormal palpable pelvic masses could be appreciated. No obvious mucosal lesions. The patient was then uneventfully reversed from anesthesia and taken to recovery room in stable condition. There were no complications during the procedure. She tolerated the procedure well. The patient needs to have additional ureteroscopy. Job#: [id number]
[2017-10-12] MEDS ORDERED: DIOVAN HCT 1601 EACH PO (14:35)
[2017-10-12] MEDS ORDERED: GLUCOSAMINE1000 MG PO (14:36)
[2017-10-13] MEDS ORDERED: CEFUROXIME250 MG PO (07:11)
== END 2017-08-18 13:05 | disposition home or self-care (01) | DRG 698 ==
LOC: ER 12:27 → ERHOLD 17:27 → MED/SURG3 18:57
PROVIDERS: ADMIT Internal Medicine; ATTEND Internal Medicine
PROC: 02HV33Z Insertion of Infusion Device into Superior Vena Cava, Percutaneous Approach (ICD-10-PCS; principal; 2017-08-12)
PROC: 0TF78ZZ Fragmentation in Left Ureter, Via Natural or Artificial Opening Endoscopic (ICD-10-PCS; 2017-08-14)
PROC: 0T778DZ Dilation of Left Ureter with Intraluminal Device, Via Natural or Artificial Opening Endoscopic (ICD-10-PCS; 2017-08-14)
PROC: 0TP5X0Z Removal of Drainage Device from Kidney, External Approach (ICD-10-PCS; 2017-08-14)
DX: N99.521 Infection of incontinent external stoma of urinary tract (principal); A41.89 Other specified sepsis; J96.90 Respiratory failure, unspecified, unspecified whether with hypoxia or hypercapnia; J18.9 Pneumonia, unspecified organism; N20.2 Calculus of kidney with calculus of ureter; N10 Acute pyelonephritis; E87.70 Fluid overload, unspecified; N39.0 Urinary tract infection, site not specified; Z93.6 Other artificial openings of urinary tract status; Z87.442 Personal history of urinary calculi; R09.02 Hypoxemia; G89.29 Other chronic pain; N81.10 Cystocele, unspecified; N36.41 Hypermobility of urethra
CPT/HCPCS: 36415; 71045; 71250; 74018; 74176; 74420; 80048; 80053; 80202; 81001; 81025; 82948; 83605; 83735; 83970; 84550; 85007; 85025; 85027; 85610; 85730; 87040; 87070; 87086; 87186; 87205; J0692; J0696; J1100; J1940; J2001; J2250; J2405; J2543; J3370; J7030; J7050

== ENCOUNTER → 2017-09-11 | Outpatient (CLI) | payer OTHER ==
[~2017-09-11] MED LIST changes: +CEFUROXIME250 MG PO; +DIOVAN HCT 1601 EACH PO; +GLUCOSAMINE1000 MG PO
--- NOTE | 2017-09-11 14:02 | Diagnostic Imaging Report ---
EXAM: Abdomen 3 Views INDICATION: Kidney stones. \S\[id number] \S\[id number] COMPARISON: CT dated 07/27/2017 FINDINGS: Nonobstructive bowel gas pattern. No signs of pneumoperitoneum. Previously seen left percutaneous nephrostomy tube is replaced by a left nephroureteral stent. Again seen approximately 1.1 cm proximal left ureteral calculus. No calcification overlying renal shadows. No osseous abnormality. Visualized lungs are clear. IMPRESSION: Left nephroureteral stent in place. Unchanged 1.1 cm proximal left ureteral calculus. Nonobstructive bowel gas pattern. Signed by: Dr. Rony Rhoades MD on 09/11/2017 1:59 PM
== END ==
LOC: RAD 12:44
PROVIDERS: ATTEND Urology
DX: N20.0 Calculus of kidney (principal)
CPT/HCPCS: 74018; 81025

== ENCOUNTER → 2017-10-13 | Day surgery (SDC) | payer OTHER ==
[~2017-10-13] MED LIST changes: +BELLADONNA/OPIUM 60 MG SUPP PR ONE; +CEFAZOLIN SOD 1 GM VIAL ONE; +DEXAMETHASONE SOD PHOS INJ 4 MG/ML VIAL ONE; +FENTANYL CITRATE/PF 100MCG/2 ML INJ ONE; +IOPAMIDOL 610MG/1ML 300 MG/ML VIAL IV ONE; +LIDOCAINE HCL 2% LOCAL INJ 5 ML SDV VIAL INJ ONE; +MIDAZOLAM HCL 2 MG/2 ML VIAL ONE; +ONDANSETRON HCL INJ 2 MG/ML VIAL ONE; +PROPOFOL IV EMULSION 10 MG/ML 20 ML VIAL ONE; +SEVOFLURANE INHAL SOLN 250 ML PEN BTL ONE
--- OUTSIDE RECORDS SUMMARY | 2017-10-13 07:21 | XMS REPORT ---
Author Author [facility] Address Unknown Phone Unavailable Care Team Providers Care Marketing Administrator Name Role Phone ROSEANNE PATRICK Unavailable Unavailable ALEXANDRE KING Unavailable Unavailable Problems This patient has no known problems. Allergies, Adverse Reactions, Alerts This patient has no known allergies or adverse reactions. Medications This patient has no known medications. Results Test Description Test Time Test Comments Text Results Atomic Results Result Comments ABDOMEN-1VIEW (KUB) [place] [address] Patient Name: DARYA ROGERS MR #: [id number] : 1970 Age/Sex: 47/F Req #: [id number] Adm Physician: Ordered by: ROSEANNE PATRICK MD Report #: [id number] Location: [facility] Room/Bed: Procedure: [id number] DX/ABDOMEN-1VIEW (KUB) Exam Date: 09/11/17 Exam Time: 1315 REPORT STATUS: Signed EXAM: Abdomen 3 Views INDICATION: Kidney stones. COMPARISON: CT dated 07/27/2017 FINDINGS : Nonobstructive bowel gas pattern. No signs of pneumoperitoneum. Previously seen left percutaneous nephrostomy tube is replaced by a left nephroureteral stent. Again seen approximately 1.1 cm proximal left ureteral calculus. No calcification overlying renal shadows. No osseous abnormality. Visualized lungs are clear. IMPRESSION: Left nephroureteral stent in place. Unchanged 1.1 cm proximal left ureteral calculus. Nonobstructive bowel gas pattern. Signed by: Dr. Rony Madrid MD on 09/11/2017 1:59 PM Dictated By: RONY MADRID MD 962 Transcribed By: GABBY on 09/11/17 135 COPY TO: ROSEANNE PATRICK MD CT CHEST WO [place] [address] Patient Name: DARYA ROGERS MR #: [id number] : 1970 Age/Sex: 47/F Req # : [id number] Adm Physician: ALEXANDRE KING MD Ordered by: SEFERINO HERNANDEZ MD Report #: [id number] Location: [facility] Room/Bed: [facility] ___ Procedure: [id number] CT/CT CHEST WO Exam Date: Exam Time: REPORT STATUS: Signed EXAM: CT Chest WITHOUT contrast 2:09 PM INDICATION: COMPARISON: Chest radiograph from 08/12 TECHNIQUE: Chest was scanned utilizing a multidetector helical scanner from the lung apex through the level of the adrenal glands without administration of IV contrast. Absence of intravenous contrast decreases sensitivity for detection of lymphadenopathy and vascular pathology. Coronal and sagittal reformations were obtained. Routine protocol was performed. IV CONTRAST: None COMPLICATIONS: None RADIATION DOSE: Total DLP: 423.2 mGy*cm Estimated effective dose: (DLP x 0.015 x size factor) mSv CTDIvol has been reviewed. It is below the limits set by the Radiation Protocol Committee (RPC). FINDINGS: LINES/ TUBES: Partially visualized right PICC with tip in the cavoatrial junction. LUNGS AND AIRWAYS: Moderate sized bilateral lower lobes consolidation with air bronchograms without significant volume loss suggestive of aspiration or pneumonia. Bilateral interstitial edema. Airways are normal. PLEURA: The pleural spaces are clear. HEART AND MEDIASTINUM: The thyroid gland is normal. No mediastinal, hilar or axillary lymphadenopathy. The left ventricle appears mildly prominent. Small pericardial effusion. The thoracic aorta and pulmonary arteries are unremarkable. UPPER ABDOMEN: There appears to be mild hydronephrosis on the left in this patient with prior obstructing renal stone. BONES: The visualized bony thorax is within normal limits. SOFT TISSUES: Unremarkable. IMPRESSION: Moderate sized bilateral lower lobe consolidations suggestive of pneumonia or aspiration. Signed by: Dr. Margie Kaba M.D. on 08/15/2017 3:32 PM Dictated By: MARGIE KABA MD 31 Transcribed By: GABBY on 1531 COPY TO: SEFERINO HERNANDEZ MD CHEST XRAY LINE PLACEMENT [place] [address] Patient Name: DARYA ROGERS MR #: [id number] : 1970 Age/Sex: 47/F Req #: [id number] Adm Physician: ALEXANDRE KING MD Ordered by: ALEXANDRE KING MD Report #: [id number] Location: MED/SURG3 Room/Bed: [facility] Procedure: [id number] DX/CHEST XRAY LINE PLACEMENT Exam Date: Exam Time: REPORT STATUS: Signed PROCEDURE: A single AP view of the chest. COMPARISON: Patients [facility], DX, CHEST SINGLE (PORTABLE), 08/10/2017, 17:56. INDICATIONS: PICC PLACEMENT FINDINGS: See impression. IMPRESSION: 1. interval placement of right-sided PICC line, with distal tip projecting near the cavoatrial junction. 2. Hypoinflated lungs with bibasilar atelectatic changes. There is obscuration of the medial left hemidiaphragm and left retrocardiac density, which may reflect atelectasis or consolidation. 3. Prominence of the cardiac silhouette, which is accentuated by low lung volumes. Markos Benoit M.D. Dictated by: Markos Benoit M.D. on 08/12/2017 at 18:38 Electronically approved by : Markos Benoit M.D. on 08/12/2017 at 18:38 Dictated By: MARKOS BENOIT MD 37 Transcribed By: LATONYA on 08/12/171837 COPY TO: ALEXANDRE KING MD ABDOMEN-1VIEW (KUB) [place] [address] Patient Name: DARYA ROGERS MR #: [id number] : 1970 Age/Sex: 47/F Req #: [id number] Adm Physician: ALEXANDRE KING MD Ordered by: PRATIMA DIAZ MD Report #: [id number] Location: [facility] Room/Bed: [facility] Procedure: [id number] DX/ABDOMEN-1VIEW (KUB) Exam Date: Exam Time: 0900 REPORT STATUS: Signed PROCEDURE: X-RAY ABDOMEN - KUB COMPARISON: CT abdomen and pelvis 2017. INDICATIONS: PYELONEPHRITIS FINDINGS: Left nephrostomy catheter is present with the tip projecting over the expected region of the left renal pelvis. Calculi are present in the left renal pelvis. There is a non-obstructed bowel-gas pattern. There are no calcifications projected over the right renal shadow, expected course of the ureters or bladder. There are no acute osseous abnormalities. The lung bases are clear. CONCLUSION: Left nephrolithiasis. Left nephrostomy catheter. Dictated by: Jerry Garner M.D. on 08/11/2017 at 9:52 Electronically approved by: Jerry Garner M.D. on 08/11/2017 at 9:52 Dictated By: JERRY GARNER MD 1 Transcribed By: LATONYA on 08/11/17951 COPY TO: PRATIMA DIAZ MD CHEST SINGLE (PORTABLE) [place] [address] Patient Name: DARYA ROGERS MR #: [id number] : 1970 Age/Sex: 47/F Req #: [id number] Adm Physician: ALEXANDRE KING MD Ordered by: SEFERINO HERNANDEZ MD Report #: [id number] Location: [facility] Room/Bed: [facility] Procedure: [id number] DX/CHEST SINGLE (PORTABLE) Exam Date: 08/10/17 Exam Time: 1750 REPORT STATUS: Signed PROCEDURE: A single AP view of the chest. COMPARISON: None. INDICATIONS: HYPOXIA FINDINGS: Lines/tubes: None. Lungs: Limited by body habitus and low lung volumes. Central peribronchovascular thickening/cuffing. Right midlung linear atelectasis/ scarring. Pleura: There is no significant pleural effusion or pneumothorax. Heart and mediastinum: The cardiomediastinal silhouette is prominent. Bones: No acute bony abnormality. IMPRESSION: Central peribronchovascular thickening/cuffing with vascular congestion. Underlying infiltrate cannot be excluded. Dictated by: Rony Madrid M.D. on 08/10/2017 at 18:12 Electronically approved by: Rony Madrid M.D. on 08/10/2017 at 18:12 Dictated By: RONY MADRID MD 11 Transcribed By: LATONYA on 08/10/171811 COPY TO: SEFERINO HERNANDEZ MD CT ABDOMEN/PELVIS WO [place] [address] Patient Name: DARYA ROGERS MR #: [id number] : 1970 Age/Sex: 47/F Req #: [id number] Adm Physician: Ordered by: NORMA WASHBURN MD Report # : [id number] Location: ER Room/Bed: Procedure: [id number] CT/CT ABDOMEN/PELVIS WO Exam Date: 08/06/17 Exam Time: 1435 REPORT STATUS: Signed EXAM: CT Abdomen and Pelvis WITHOUT contrast INDICATION: Kidney stone. Fever and chills. COMPARISON: None. TECHNIQUE: Abdomen and pelvis were scanned utilizing a multidetector helical scanner from the lung base to the pubic symphysis without administration of IV contrast. Absence of intravenous contrast decreases sensitivity for detection of focal lesions and vascular pathology. Coronal and sagittal reformations were obtained. Renal stone protocol was performed. IV CONTRAST: None. ORAL CONTRAST: Water RADIATION DOSE: Total DLP: 507.76 mGy*cm Estimated effective dose: (DLP x 0.015 x size factor) mSv COMPLICATIONS: None FINDINGS: LINES and TUBES: Left sided nephrostomy tube with distal tip coiled within the left renal pelvis. LOWER THORAX: Bibasilar subsegmental atelectasis. HEPATOBILIARY: No focal hepatic lesions. No biliary ductal dilation. GALLBLADDER: No radio-opaque stones or sludge. No wall thickening. SPLEEN: No splenomegaly. PANCREAS: No focal masses or ductal dilatation. ADRENALS: No adrenal nodules KIDNEYS/URETERS: Left sided nephrostomy tube with distal tip coiled within the left renal pelvis. There is a 1.6 cm lobulated calculus within the left UPJ on coronal image 58 series 400, with possible adjacent smaller calculi. There is gas within the left lower pole collecting system likely related to the presence of nephrostomy tube and recent instrumentation. There is left perinephric stranding without perinephric fluid collections. GI TRACT: No abnormal distention, wall thickening, or evidence of bowel obstruction. Appendix is normal. PELVIC ORGANS/BLADDER: Unremarkable. LYMPH NODES: No lymphadenopathy. VESSELS: Unremarkable. PERITONEUM / RETROPERITONEUM: No free air or fluid. BONES: Unremarkable. SOFT TISSUES: Unremarkable. IMPRESSION: 1. 1.6 cm left UPJ renal calculus without hydronephrosis likely due to the presence of a left nephrostomy tube. Gas within the left lobe lower pole collecting system likely related to the presence of the nephrostomy tube and/or recent instrumentation. 2. Left perinephric stranding is a nonspecific finding which may be related to recent obstruction or recent percutaneous nephrostomy tube placement, however, superimposed infection cannot be excluded in this patient's clinical syndrome narrowing. No perinephric fluid collections. Signed by: Dr. Temo Dunlap M.D. on 08/06/2017 4:13 PM Dictated By: SOPHIE DUNLAP MD, MD 1613 COPY TO: NORMA WASHBURN MD
--- OUTSIDE RECORDS SUMMARY | 2017-10-13 07:21 | XMS REPORT | Continuity of Care Document ---
Author Author [facility] Organization [facility] Address [address] [place] [address] Phone Unavailable Care Team Providers Care Rubber Stamp Dies Inspector Name Role Phone NONSTAFF PCP Unavailable Insurance Providers Guarantor Darya Meek Address [address] [place] [address] Email [email or web address] Payer Cigna Hmo Policy Number [id number] Subscriber's Name Darya Meek Relationship 18 Self / Same As Patient Group Number [id number] Group Name [id number]. Effective Date 09 Advance Directives Directive Response Recorded Date/Time Does the patient have an advance directive? No 08/06/17 8:00pm If yes, is advance directive on file with [facility]? No 08/06/17 8:00pm If not on file with [facility] will patient provide a copy? No 08/06/17 8:00pm Do you have a Directive to Physician? No 08/06/17 2:07pm Do you have a Medical Power of Jewelry Manager? No 08/06/17 2:07pm Do you have an out of hospital Do Not Resuscitate Order? No 08/06/17 2:07pm Do you have any special needs we should be aware of? No 08/06/17 2:07pm Do you have a support person here with you today? Yes 08/06/17 2:07pm Did patient receive Notice of Privacy Practices? Yes 08/06/17 2:07pm Did patient receive patient rights and responsibilities? Yes 08/06/17 2:07pm Problems Medical Problem Onset Date Status Pyelonephritis Unknown Medications Current Home Medications Medication Dose Units Route Directions Days Qty Instructions Start Date Atorvastatin Calcium 20 Mg Tablet 40 Mg Oral Bedtime 30 Tab Farxiga 10 Mg Oral Daily Hydrochlorothiazide 25 Mg Tablet 12.5 Mg Oral Daily 30 Tab Metformin Hcl 500 Mg Tablet 1,000 Mg Oral Twice A Day 60 Tab Valsartan (Diovan) 160 Mg Tab 160 Mg Oral Daily 60 Tab Social History Social History Problem Response Recorded Date/Time Onset Date Status Hx Psychiatric Problems No 08/06/2017 8:00pm Not Applicable Not Applicable Hx Eating Disorder No 08/06/2017 8:00pm Not Applicable Not Applicable Hx Substance Use Disorder No 08/06/2017 8:00pm Not Applicable Not Applicable Hx Depression No 08/06/2017 8:00pm Not Applicable Not Applicable Hx Alcohol Use No 08/06/2017 8:00pm Not Applicable Not Applicable Hx Substance Use Treatment No 08/06/2017 8:00pm Not Applicable Not Applicable Hx Physical Abuse No 08/06/2017 8:00pm Not Applicable Not Applicable Smoking Status Start Date Stop Date Never Smoker Hospital Discharge Instructions No hospital discharge instruction information available. Plan of Care Discharge Date 08/18/17 1:05pm Disposition HOME, SELF-CARE Instructions/Education Provided Pyelonephritis Prescriptions See Medication Section Referrals SUNDAY HERRON MD (Infectious Disease) Order Date: 1 Day Entered Date: 08/18/2017 12:04pm Address: [address] [place] [address] SEFERINO HERNANDEZ MD (Pulmonary) Order Date: 5-7 Days Entered Date: 08/18/2017 12:05pm Address: [address] [place] [address] MICHELL PATRICK MD (Urology) Order Date: 5-7 Days Entered Date: 08/18/2017 12:08pm Address: [address] [place] [address] Additional Instructions/Education FOLLOW UP WITH DR HERRON OFFICE TODAY FOR ANTIBIOTIC MEDICATION Functional Status Query Response Date Recorded Assistive Devices None August 06, 2017 8:00pm Ambulation Ability Independent August 06, 2017 8:00pm Toileting Ability Independent August 17, 2017 1:00pm Allergies, Adverse Reactions, Alerts Allergen Type Severity Reaction Status Last Updated Levofloxacin Allergy Intermediate rash, swollen lip, itching all over Active 08/06/17 Immunizations No immunization information available. Vital Signs Acute Vital Signs Vital Response Date/Time Temperature (Fahrenheit) 97.0 degrees F (97.6 - 99.5) 08/18/2017 12:14pm Pulse Pulse Rate (adult) 104 bpm (60 - 90) 08/18/2017 12:14pm Respiratory Rate 18 bpm (12 - 24) 08/18/2017 12:14pm Blood Pressure 120/79 mm Hg 08/18/2017 12:14pm Height 5 ft 3 in 08/06/2017 12:59pm Weight 165.06 lb 08/18/2017 8:15am Body Mass Index 29.2 kg/m^2 08/18/2017 8:15am Results Laboratory Results Test Name Result Units Flags Reference Collection Date/Time Result Date/ Time Comments White Blood Count 9.71 x10e3/uL 4.8-10.8 08/17/2017 5:32am 08/17/2017 5 :55am Red Blood Count 4.37 x10e6/uL 3.6-5.1 08/17/2017 5:32am 08/17/2017 5: 55am Hemoglobin 13.0 g/dL 12.0-16.0 08/17/2017 5:32am 08/17/2017 5:55am Hematocrit 38.2 % 34.2-44.1 08/17/2017 5:32am 08/17/2017 5:55am Mean Corpuscular Volume 87.4 fL 81-99 08/17/2017 5:32am 08/17/2017 5: 55am Mean Corpuscular Hemoglobin 29.7 pg 28-32 08/17/2017 5:32am 08/17/2017 5:55am Mean Corpuscular Hemoglobin Concent 34.0 g/dL 31-35 08/17/2017 5:32am 08/17/2017 5:55am Red Cell Distribution Width 12.8 % 11.7-14.4 08/17/2017 5:32am 2017 5:55am Platelet Count 273 x10e3/uL 140-360 08/17/2017 5:am 08/17/2017 5: 55am Neutrophils (%) (Auto) 57.9 % 38.7-80.0 08/17/2017 5:am 08/17/2017 5: 55am Lymphocytes (%) (Auto) 28.3 % 18.0-39.1 08/17/2017 5:08/17/2017 5: 55am Monocytes (%) (Auto) 8.0 % 4.4-11.3 08/17/2017 5:am 08/17/2017 5: 55am Eosinophils (%) (Auto) 3.9 % 0.0-6.0 08/17/2017 5:08/17/2017 5: 55am Basophils (%) (Auto) 0.7 % 0.0-1.0 08/17/2017 5:08/17/2017 5:55am IM GRANULOCYTES % 1.2 % H 0.0-1.0 08/17/2017 5:08/17/2017 5:55am Neutrophils # (Auto) 5.6 2.1-6.9 08/17/2017 5:am 08/17/2017 5:55am Lymphocytes # (Auto) 2.8 1.0-3.2 08/17/2017 5:am 08/17/2017 5:55am Monocytes # (Auto) 0.8 0.2-0.8 08/17/2017 5:am 08/17/2017 5:55am Eosinophils # (Auto) 0.4 0.0-0.4 08/17/2017 5:am 08/17/2017 5:55am Basophils # (Auto) 0.1 0.0-0.1 08/17/2017 5:am 08/17/2017 5:55am Absolute Immature Granulocyte (auto 0.12 x10e3/uL H 0-0.1 08/17/2017 5: 32am 08/17/2017 5:55am Differential Total Cells Counted 100 08/12/2017 6:14am 08/12/2017 9 :30am Neutrophils % (Manual) 76 % H 40-74 08/12/2017 6:14am 08/12/2017 9:30am Lymphocytes % (Manual) 12 % L 19-48 08/12/2017 6:14am 08/12/2017 9:30am Monocytes % (Manual) 1 % L 3.4-9.0 08/12/2017 6:14am 08/12/2017 9:30am Eosinophils % (Manual) 9 % H 0-7 08/12/2017 6:14am 08/12/2017 9:30am Metamyelocytes % 2 % H 0-0 08/10/2017 4:30pm 08/10/2017 8:15pm Myelocytes % 1 % H 0-0 08/12/2017 6:14am 08/12/2017 9:30am Reactive Lymphocytes 2 08/10/2017 4:30pm 08/10/2017 8:15pm Blast Cells % 1 08/12/2017 6:14am 08/12/2017 9:30am Platelet Estimate ADEQUATE 08/12/2017 6:14am 08/12/2017 9:30am Platelet Morphology Comment NORMAL 08/12/2017 6:14am 08/12/2017 9: 30am Anisocytosis SLIGHT 08/12/2017 6:14am 08/12/2017 9:30am [place] Bodies FEW 08/12/2017 6:14am 08/12/2017 9:30am Red Cell Morphology Comment NORMAL 08/12/2017 6:14am 08/12/2017 9: 30am Prothrombin Time 16.1 seconds H 11.9-14.5 08/11/2017 8:00am 08/11/2017 8 :29am Prothromb Time International Ratio 1.23 08/11/2017 8:00am 2017 8:29am Oral Anticoagulant Therapy INR Values: 1. Low Intensity Therapy 1.5 - 2.0 2. Moderate Intensity Therapy 2.0 - 3.0 3. High Intensity Therapy(1) 2.5 - 3.5 4. High Intensity Therapy(2) 3.0 - 4.0 5. Panic Value INR > 5.0 Activated Partial Thromboplast Time 28.3 seconds 23.8-35.5 08/10/2017 4: 30pm 08/10/2017 5:03pm Urine Color YELLOW YELLOW 08/06/2017 2:23pm 08/06/2017 2:53pm Urine Clarity CLOUDY H CLEAR 08/06/2017 2:23pm 08/06/2017 2:53pm Urine Specific [place] 1.015 1.010-1.025 08/06/2017 2:23pm 2017 2:53pm Urine pH 6 5 - 7 08/06/2017 2:23pm 08/06/2017 2:53pm Urine Leukocyte Esterase 2+ H NEGATIVE 08/06/2017 2:23pm 08/06/2017 2: 53pm Urine Nitrite NEGATIVE NEGATIVE 08/06/2017 2:23pm 08/06/2017 2:53pm Urine Protein 2+ H NEGATIVE 08/06/2017 2:23pm 08/06/2017 2:53pm Urine Glucose (UA) 3+ H NEGATIVE 08/06/2017 2:23pm 08/06/2017 2:53pm Urine Ketones 3+ H NEGATIVE 08/06/2017 2:23pm 08/06/2017 2:53pm Urine Urobilinogen 0.2 mg/dL 0.2 - 1 08/06/2017 2:23pm 08/06/2017 2: 53pm Urine Bilirubin NEGATIVE NEGATIVE 08/06/2017 2:pm 08/06/2017 2: 53pm Urine Blood 4+ H NEGATIVE 08/06/2017 2:23pm 08/06/2017 2:53pm Urine WBC 6-10 /HPF H 0-5 08/06/2017 2:23pm 08/06/2017 3:28pm Urine RBC 11-20 /HPF H 0-5 08/06/2017 2:23pm 08/06/2017 3:28pm Urine Bacteria MANY /HPF H NONE 08/06/2017 2:23pm 08/06/2017 3:28pm Urine Epithelial Cells FEW /LPF NONE 08/06/2017 2:23pm 08/06/2017 3: 28pm Urine Test NEGATIVE NEGATIVE 08/14/2017 11:09am 08/14/2017 11:18am Sodium Level 136 mmol/L 136-145 08/17/2017 5:32am 08/17/2017 6:16am Potassium Level 2.9 mmol/L *L 3.5-5.1 08/17/2017 5:32am 08/17/2017 6: 16am Results called to [Leigh Ann Lewis RN] at 0615 on 08/17/17 by Ambreen Rodriguez. RB OK. Chloride Level 96 mmol/L L 98-107 08/17/2017 5:32am 08/17/2017 6:16am Carbon Dioxide Level 29 mmol/L 22-08/17/2017 5:32am 08/17/2017 6: 16am Anion Gap 13.9 mmol/L 8-16 08/17/2017 5:32am 08/17/2017 6:16am Blood Urea Nitrogen 13 mg/dL 7-08/17/2017 5:32am 08/17/2017 6:16am Creatinine 0.79 mg/dL 0.57-1.11 08/17/2017 5:32am 08/17/2017 6:16am BUN/Creatinine Ratio 16 6-08/17/2017 5:32am 08/17/2017 6:16am Estimat Glomerular Filtration Rate > 60 ML/MIN 60- 08/17/2017 5:32am 6:16am Ranges were taken from the National Kidney Disease Education Program and the National Kidney Foundation literature. Reference ranges: 60 or greater: Normal 16-59 (for 3 consecutive months): Chronic kidney disease 15 or less: Kidney failure Glucose Level 168 mg/dL H 74-118 08/17/2017 5:32am 08/17/2017 6:16am Calcium Level 9.1 mg/dL 8.4-10.2 08/17/2017 5:32am 08/17/2017 6:16am Bedside Glucose 212 mg/dL H 70-120 08/18/2017 11:53am 08/18/2017 12: 07pm Meter ID: [id number] Lactic Acid Level 15.0 MG/DL 4.5-19.8 08/10/2017 4:30pm 08/10/2017 5: 05pm Uric Acid 5.7 mg/dL 2.6-8.0 08/15/2017 7:20am 08/15/2017 8:06am Magnesium Level 1.6 MG/DL 1.3-2.1 08/17/2017 5:32am 08/17/2017 6:45am Total Bilirubin 0.6 mg/dL 0.2-1.2 08/17/2017 5:32am 08/17/2017 6:16am Aspartate Amino Transf (AST/SGOT) 8 IU/L 5-34 08/17/2017 5:32am 2017 6:16am Alanine Aminotransferase (ALT/SGPT) 6 IU/L 0-55 08/17/2017 5:3208/17 6:16am Total Protein 7.1 g/dL 6.5-8.1 08/17/2017 5:3208/17/2017 6:16am Albumin 3.0 g/dL L 3.5-5.0 08/17/2017 5:3208/17/2017 6:16am Globulin 4.1 g/dL H 2.3-3.5 08/17/2017 5:3208/17/2017 6:16am Albumin/Globulin Ratio 0.7 L 0.8-2.0 08/17/2017 5:3208/17/2017 6: 16am Alkaline Phosphatase 76 IU/L 40-150 08/17/2017 5:3208/17/2017 6: 16am Vancomycin Level Trough < 2.0 ug/mL L 5.0-10.0 08/17/2017 5:322017 6:45am Parathyroid Hormone 19 pg/mL 15-65 08/15/2017 7:2008/18/2017 12: 03pm Calcium (Send out) 9.0 mg/dL 8.7-10.2 08/15/2017 7:2008/18/2017 12: 03pm Parathyroid Hormone Interpretation Comment . 08/15/2017 7:2017 12:03pm Interpretation Intact PTH Calcium (pg/mL) (mg/dL) Normal 15 - 65 8.6 - 10.2 Primary Hyperparathyroidism >65 >10.2 Secondary Hyperparathyroidism >65 <10.2 Non-Parathyroid Hypercalcemia <65 >10.2 Hypoparathyroidism <15 < 8.6 Non-Parathyroid Hypocalcemia 15 - 65 < 8.6 Performed at: - [facility] [id number] Ceramics Instructor: Gilberto Douglas MD, Phone: [phone] Performed at: [facility] [id number] Ceramics Instructor: Dennis Hunt MD, Phone: [phone] Microbiology Results Procedure Source Organism/Result Collection Date/Time Result Date/Time Result Status Urine Culture Urine, Ureter ENTEROBACTER CLOACAE 08/06/2017 2:23pm 2017 7:15am Final Blood Culture Blood NO GROWTH AFTER 5 DAYS, FINAL REPORT 08/10/2017 4:20pm 08/15/2017 5:02pm Final Procedures Procedure Status Date Provider(s) FRAGMENTING OF KIDNEY STONE Completed 08/05/17 ROSEANNE PATRICK MD Cystoscopy with retrograde pyelography Completed 08/14/[address] of abdomen and pelvis without contrast Active 08/06/17 NORMA WASHBURN MD Computed tomography of chest without contrast Active 08/15/17 SEFERINO HERNANDEZ MD Encounters Encounter Location Arrival/Admit Date Discharge/Depart Date Attending Provider Discharged Inpatient [facility] 08/06/17 5:27pm 08/18/17 1:05pm ALEXANDRE KING [facility] 08/05/17 9:15am ROSEANNE PATRICK MD
[2017-10-13 07:26] LABS: ANION GAP 12.7 mmol/L (8-16); BLOOD UREA NITROGEN 13 mg/dL (7-26); BUN/CREATININE RATIO 16 (6-25); CALCIUM 9.3 mg/dL (8.4-10.2); CARBON DIOXIDE 25 mmol/L (22-29); CHLORIDE 105 mmol/L (98-107); CREATININE, SERUM 0.81 mg/dL (0.57-1.11); EST GLOMERULAR FILTRATION RATE > 60 ML/MIN (60-); GLUCOSE 148 mg/dL (74-118); POTASSIUM 3.7 mmol/L (3.5-5.1); SODIUM 139 mmol/L (136-145)
--- NOTE | 2017-10-13 12:09 | Operative Report ---
DATE OF PROCEDURE: October 13, 2017 SERVICE: Urology. PREOPERATIVE DIAGNOSES 1. Left nephrolithiasis, impacted stone. 2. Presence of double-J stent. 3. Left hydronephrosis. 4. Microhematuria. POSTOPERATIVE DIAGNOSES 1. Left nephrolithiasis, impacted stone. 2. Presence of double-J stent. 3. Left hydronephrosis. 4. Microhematuria. OPERATIONS PERFORMED 1. Cystoscopy and lithotripsy, extracorporeal shock wave lithotripsy of left kidney stone using 3000 shocks. 2. Cystoscopy and removal of stent from the left side. 3. Left retrograde pyelogram under fluoroscopic control. 4. Placement of double-J stent, 7-Turkish x 24 cm long to the left side. 5. Interpretation of x-ray, radiologist not present. 6. Supervision of fluoroscopy, radiologist not present. PRESS SERVICE READER: None. ANESTHESIA: General. CLINICAL INDICATION NOTE: This is a 47-year-old female patient that had impacted stone, large 1.2 x 1 cm near the ureteropelvic junction on the left side. She does have a stent in place. She was brought for lithotripsy and change of stent. DESCRIPTION OF PROCEDURE AND FINDINGS: After proper level of anesthesia was achieved, the patient was placed in the supine position and the stone was brought to focus of treatment and treated with 3000 shocks. The first 300 were at 60 per minute, the next 500 at 90 per minute, and the rest at 120. The stones fragmented very well. Following this, patient was placed in lithotomy position, prepped and draped in a sterile fashion. Cystoscopy done was unremarkable except for some hematuria coming from the left side. The double-J stent was removed. Guidewire was negotiated up into the kidney. Open-ended catheter was placed and retrograde pyelogram demonstrating dilation of the upper collecting system and the fragments of stone. Guidewire was kept in place and a 7-Turkish x 24 cm long double-J stent was properly positioned on the left side. This was verified by x-ray and endoscopy. Patient tolerated the procedure well, was transferred in satisfactory condition to recovery room. Patient will require additional steps in management. The next procedure will be ureteroscopy to try to remove all the fragments. Job#: [id number] [facility]
== END | disposition home or self-care (01) ==
LOC: OR 07:18
PROVIDERS: ATTEND Urology
DX: N20.0 Calculus of kidney (principal); Z46.6 Encounter for fitting and adjustment of urinary device; N13.30 Unspecified hydronephrosis; I10 Essential (primary) hypertension; E78.5 Hyperlipidemia, unspecified; E11.9 Type 2 diabetes mellitus without complications; K21.9 Gastro-esophageal reflux disease without esophagitis; Z01.810 Encounter for preprocedural cardiovascular examination
CPT/HCPCS: 36415; 50590; 52332; 80048; 81025; 82948; 93005; C2617; J0690; J1100; J2001; J2250; J2405; Q9967

== ENCOUNTER → 2017-11-06 | Outpatient (CLI) | payer OTHER ==
[~2017-11-06] MED LIST changes: -BELLADONNA/OPIUM 60 MG SUPP PR ONE; -CEFAZOLIN SOD 1 GM VIAL ONE; -DEXAMETHASONE SOD PHOS INJ 4 MG/ML VIAL ONE; -FENTANYL CITRATE/PF 100MCG/2 ML INJ ONE; -IOPAMIDOL 610MG/1ML 300 MG/ML VIAL IV ONE; -LIDOCAINE HCL 2% LOCAL INJ 5 ML SDV VIAL INJ ONE; -MIDAZOLAM HCL 2 MG/2 ML VIAL ONE; -ONDANSETRON HCL INJ 2 MG/ML VIAL ONE; -PROPOFOL IV EMULSION 10 MG/ML 20 ML VIAL ONE; -SEVOFLURANE INHAL SOLN 250 ML PEN BTL ONE
--- NOTE | 2017-11-06 16:35 | Diagnostic Imaging Report ---
PROCEDURE:X-RAY ABDOMEN - KUB COMPARISON:[facility], CT, CT ABDOMEN/PELVIS WO, 08/06/2017, 14:42. [facility], DX, ABDOMEN-1VIEW (KUB), 09/11/2017, 13:03. INDICATIONS:CALCULUS OF KIDNEY FINDINGS: Nonobstructive bowel gas pattern with moderate amount of retained stool which partly obscures the renal shadows. Left double-J internal ureteral stent in place. No interval change in 1.1 cm proximal left ureteral calculus. No other radiopaque densities project over the genitourinary system. A 3-4 mm rounded density projecting over the posterior aspect of the right 10th rib is located outside the renal shadow and likely located in the bowel, as no corresponding abnormality seen on prior CT dated 08/06/2017. No acute bony abnormalities. CONCLUSION: 1. Stable left double-J internal ureteral stent in place and 1.1 cm proximal left ureteral calculus. No other radiopaque densities project over the genitourinary system. Dustin Benoit M.D. Dictated by: Dustin Benoit M.D. on 11/06/2017 at 16:36 Electronically approved by: Dustin Benoit M.D. on 11/06/2017 at 16:36
== END ==
LOC: RAD 11:02
PROVIDERS: ATTEND Urology
DX: N20.0 Calculus of kidney (principal)
CPT/HCPCS: 74018

== ENCOUNTER → 2017-11-24 | Day surgery (SDC) | payer OTHER ==
[2017-11-23 14:19] LABS: ANION GAP 15.5 mmol/L (8-16); BLOOD UREA NITROGEN 17 mg/dL (7-26); BUN/CREATININE RATIO 22 (6-25); CALCIUM 9.8 mg/dL (8.4-10.2); CARBON DIOXIDE 20 mmol/L (22-29); CHLORIDE 104 mmol/L (98-107); CREATININE, SERUM 0.78 mg/dL (0.57-1.11); EST GLOMERULAR FILTRATION RATE > 60 ML/MIN (60-); GLUCOSE 99 mg/dL (74-118); POTASSIUM 3.5 mmol/L (3.5-5.1); SODIUM 136 mmol/L (136-145)
[~2017-11-24] MED LIST changes: +CEFAZOLIN SOD 1 GM VIAL ONE; +DEXAMETHASONE SOD PHOS INJ 4 MG/ML VIAL ONE; +FENTANYL CITRATE/PF 100MCG/2 ML INJ ONE; +IOPAMIDOL 610MG/1ML 300 MG/ML VIAL IV ONE; +LIDOCAINE HCL 2% LOCAL INJ 5 ML SDV VIAL INJ ONE; +MIDAZOLAM HCL 2 MG/2 ML VIAL ONE; +ONDANSETRON HCL INJ 2 MG/ML VIAL ONE; +PROPOFOL IV EMULSION 10 MG/ML 20 ML VIAL ONE; +SEVOFLURANE INHAL SOLN 250 ML PEN BTL ONE
--- NOTE | 2017-11-24 16:08 | Operative Report ---
DATE OF PROCEDURE: November 24, 2017 SERVICE: Urology. PREOPERATIVE DIAGNOSIS: 1. Left nephrolithiasis. 2. Left double J stent. POSTOPERATIVE DIAGNOSIS: 1. Left nephrolithiasis. 2. Left double J stent. OPERATION PERFORMED: 1. Extracorporeal shockwave lithotripsy of 2 left kidney stones. 2. Cystoscopy and removal of stent from the left side. 3. Left retrograde. 4. Placement of double J stent to the left side, 7-North Korean, 24 cm long. 5. Interpretation of x-ray. Radiologist not present. 6. Supervision of fluoroscopy. Radiologist not present. ORE GRADER: None. ANESTHESIA: General. CLINICAL INDICATION NOTE: This is a 47-year-old patient who was brought for lithotripsy and change of stent. She has stones on the left side. Patient was advised about the procedure with the aid of a Bulgarian translation. She understands the procedure, indication, as well as potential benefits and complications. DESCRIPTION OF PROCEDURE AND FINDINGS: After proper level of anesthesia was achieved, the patient was placed in supine position. The lower pole near the ureteropelvic junction was brought to treatment first, treated with 1500 shocks, disintegrated very well. Same was done with the 2nd stone, which is higher. Following this, patient was placed in lithotomy position, prepped and draped in sterile fashion. Cystoscopy done. Double J stent was pulled out from the left ureteral orifice. Wire was placed up, open-end catheter inserted. Retrograde pyelogram demonstrating what appeared to be some clots in the upper collecting system. A wire was kept in place, and a double J stent was properly positioned on the left side. This was verified by x-ray and endoscopy. Patient tolerated procedure well, was discharged in satisfactory condition and will be followed as outpatient. Patient will need additional procedures. Job#: [id number] EV
== END | disposition home or self-care (01) ==
LOC: OR 06:26
PROVIDERS: ATTEND Urology
DX: N20.0 Calculus of kidney (principal); Z46.6 Encounter for fitting and adjustment of urinary device; I10 Essential (primary) hypertension; E78.5 Hyperlipidemia, unspecified; K21.9 Gastro-esophageal reflux disease without esophagitis; E11.9 Type 2 diabetes mellitus without complications; Z79.84 Long term (current) use of oral hypoglycemic drugs; Z88.1 Allergy status to other antibiotic agents
CPT/HCPCS: 36415 ×2; 50590; 52332; 80048; 81025; 82948; C2617; J0690; J1100; J2001; J2250; J2405; Q9967

== ENCOUNTER → 2017-12-25 | Outpatient (CLI) | payer OTHER ==
[~2017-12-25] MED LIST changes: -CEFAZOLIN SOD 1 GM VIAL ONE; -DEXAMETHASONE SOD PHOS INJ 4 MG/ML VIAL ONE; -FENTANYL CITRATE/PF 100MCG/2 ML INJ ONE; -IOPAMIDOL 610MG/1ML 300 MG/ML VIAL IV ONE; -LIDOCAINE HCL 2% LOCAL INJ 5 ML SDV VIAL INJ ONE; -MIDAZOLAM HCL 2 MG/2 ML VIAL ONE; -ONDANSETRON HCL INJ 2 MG/ML VIAL ONE; -PROPOFOL IV EMULSION 10 MG/ML 20 ML VIAL ONE; -SEVOFLURANE INHAL SOLN 250 ML PEN BTL ONE
--- NOTE | 2017-12-25 12:56 | Diagnostic Imaging Report ---
PROCEDURE:X-RAY ABDOMEN - KUB COMPARISON:11/06/2017 INDICATIONS:CALCULUS OF KIDNEY FINDINGS: Left double-J nephroureteral stent is in place. The proximal pigtail is not completely formed. Cluster of calcifications along the proximal stent measures up to 9 mm. Possible 7 mm calcification projected over the left kidney, inferior pole. No dilated loops of bowel or abnormal air-fluid levels patterns. Five non-rib bearing lumbar type vertebral bodies identified. CONCLUSION: Left double-J nephroureteral stent with cluster of calcifications along the proximal stent, which may represent encrustation. There is also a possible 7 mm calcification projected over the left kidney, inferior pole. Dictated by: Giancarlo Bruno M.D. on 12/25/2017 at 12:59 Electronically approved by: Giancarlo Bruno M.D. on 12/25/2017 at 12:59
== END ==
LOC: RAD 11:20
PROVIDERS: ATTEND Urology
DX: N20.0 Calculus of kidney (principal)
CPT/HCPCS: 74018; 81025

== ENCOUNTER → 2018-03-03 | Day surgery (SDC) | payer OTHER ==
[2018-03-02 13:10] LABS: ANION GAP 15.3 mmol/L (8-16); BLOOD UREA NITROGEN 15 mg/dL (7-26); BUN/CREATININE RATIO 18 (6-25); CALCIUM 9.9 mg/dL (8.4-10.2); CARBON DIOXIDE 25 mmol/L (22-29); CHLORIDE 99 mmol/L (98-107); CREATININE, SERUM 0.82 mg/dL (0.57-1.11); EST GLOMERULAR FILTRATION RATE > 60 ML/MIN (60-); GLUCOSE 122 mg/dL (74-118); POTASSIUM 4.3 mmol/L (3.5-5.1); SODIUM 135 mmol/L (136-145)
[~2018-03-03] MED LIST changes: +CEFAZOLIN SOD 1 GM VIAL ONE; +DEXAMETHASONE SOD PHOS INJ 4 MG/ML VIAL ONE; +FENTANYL CITRATE/PF 100MCG/2 ML INJ ONE; +IOPAMIDOL 300MG/ML 50ML INFUS..BTL IV ONE; +LIDOCAINE HCL 2% LOCAL INJ 5 ML SDV VIAL INJ ONE; +MIDAZOLAM HCL 2 MG/2 ML VIAL ONE; +ONDANSETRON HCL INJ 2 MG/ML VIAL ONE; +PROPOFOL IV EMULSION 10 MG/ML 20 ML VIAL ONE; +SEVOFLURANE INHAL SOLN 250 ML PEN BTL ONE
--- NOTE | 2018-03-03 14:51 | Operative Report ---
DATE OF PROCEDURE: March 03, 2018 SERVICE: Urology. PREOPERATIVE DIAGNOSES 1. Left nephrolithiasis. 2. Left double J stent. 3. Microhematuria. POSTOPERATIVE DIAGNOSES 1. Left nephrolithiasis. 2. Left double J stent. 3. Microhematuria. OPERATIONS PERFORMED 1. Extracorporeal shock wave lithotripsy of left kidney stone. 2. Cystoscopy and removal of double J stent from the left side. 3. Left retrograde pyelograms under fluoroscopic control. 4. Placement of double J stent 6-Indonesian, 24 cm long to the left side. 5. Interpretation of x-ray, radiologist not present. 6. Supervision of fluoroscopy, radiologist not present. DIGITAL MEDIA INTERN: None. ANESTHESIA: General. CLINICAL INDICATION NOTE: This is a patient who has a stone on the left side. She was brought for treatment. The stent will be changed as well. Procedure was discussed with the patient. Potential benefit and complication discussed, explained and accepted. DESCRIPTION OF PROCEDURE AND FINDINGS: After proper level of anesthesia was achieved, the patient was placed in supine position and treated with 2500 shocks. The stone disintegrated well. After completing the ESWL, the patient was repositioned in lithotomy position, prepped and draped in sterile fashion. Urethra inspected, is unremarkable. Bladder appears normal. Double J stent is protruding from the left ureteral orifice, was grasped and removed. Open-ended catheter inserted, wire was placed and after retrograde, double J stent was properly positioned on the left side. Patient tolerated the procedure well and was transferred in satisfactory condition to recovery room. She will be followed. Job#: [id number] [facility]
== END | disposition home or self-care (01) ==
LOC: OR 05:54
PROVIDERS: ATTEND Urology
DX: N20.0 Calculus of kidney (principal); Z46.6 Encounter for fitting and adjustment of urinary device; I10 Essential (primary) hypertension; E11.9 Type 2 diabetes mellitus without complications; Z88.1 Allergy status to other antibiotic agents; Z01.810 Encounter for preprocedural cardiovascular examination; Z01.812 Encounter for preprocedural laboratory examination; Z79.84 Long term (current) use of oral hypoglycemic drugs
CPT/HCPCS: 36415 ×2; 50590; 52332; 80048; 81025; 82948; 93005; C2617; J0690; J1100; J2001; J2250; J2405; Q9967

== ENCOUNTER → 2018-04-02 | Outpatient (CLI) | payer OTHER ==
[~2018-04-02] MED LIST changes: -CEFAZOLIN SOD 1 GM VIAL ONE; -DEXAMETHASONE SOD PHOS INJ 4 MG/ML VIAL ONE; -FENTANYL CITRATE/PF 100MCG/2 ML INJ ONE; -IOPAMIDOL 300MG/ML 50ML INFUS..BTL IV ONE; -LIDOCAINE HCL 2% LOCAL INJ 5 ML SDV VIAL INJ ONE; -MIDAZOLAM HCL 2 MG/2 ML VIAL ONE; -ONDANSETRON HCL INJ 2 MG/ML VIAL ONE; -PROPOFOL IV EMULSION 10 MG/ML 20 ML VIAL ONE; -SEVOFLURANE INHAL SOLN 250 ML PEN BTL ONE
--- NOTE | 2018-04-02 12:04 | Diagnostic Imaging Report ---
EXAM: Abdomen 3 Views INDICATION: Kidney stone. COMPARISON: KUB 12/25/17. FINDINGS: A left sided internal ureteral stent is present. The proximal pigtail is formed and overlies the proximal ureter. An 8 mm calcification projects near the proximal pigtail. The distal pigtail overlies the bladder. No other calcification overlying renal shadows. Nonobstructive bowel gas pattern. No signs of pneumoperitoneum. No acute osseous abnormality. Visualized lungs are clear. IMPRESSION: Left sided internal ureteral stent as above. An 8 mm calcification projecting near the proximal pigtail may represent encrustation or proximal ureteral / renal pelvis stone. Signed by: Dr. Maryjane Espinal MD on 04/02/2018 12:01 PM
== END ==
LOC: RAD 10:43
PROVIDERS: ATTEND Urology
DX: N20.0 Calculus of kidney (principal)
CPT/HCPCS: 74018; 81025

== ENCOUNTER → 2018-04-26 | Outpatient (CLI) | payer OTHER ==
--- NOTE | 2018-04-26 13:12 | Diagnostic Imaging Report ---
Exam: Abdominal film Clinical History: Renal calculus Comparison: 04/02/2018 DISCUSSION: Stable position of left internal ureteral stent. Unchanged 7-8 mm calcification projecting superior to the proximal locking loop of the renal stent. No additional renal, ureteral, or bladder calculi. Unchanged calcification adjacent to the distal locking loop of the stent likely a pelvic phlebolith. Bowel gas pattern is nonobstructive. Regional skeletal structures are intact. IMPRESSION: Unchanged position of left internal ureteral stent with 7-8 mm calculus adjacent to the proximal locking loop. Signed by: Dr. Miguel Ángel Webster M.D. on 04/26/2018 1:08 PM
== END ==
LOC: RAD 12:13
PROVIDERS: ATTEND Urology
DX: N20.0 Calculus of kidney (principal)
CPT/HCPCS: 74018; 81025

== ENCOUNTER → 2018-06-25 | Day surgery (SDC) | payer OTHER ==
[2018-06-24 09:49] LABS: ANION GAP 14.1 mmol/L (8-16); BLOOD UREA NITROGEN 14 mg/dL (7-26); BUN/CREATININE RATIO 18 (6-25); CALCIUM 9.5 mg/dL (8.4-10.2); CARBON DIOXIDE 26 mmol/L (22-29); CHLORIDE 104 mmol/L (98-107); CREATININE, SERUM 0.77 mg/dL (0.57-1.11); EST GLOMERULAR FILTRATION RATE > 60 ML/MIN (60-); GLUCOSE 141 mg/dL (74-118); POTASSIUM 4.1 mmol/L (3.5-5.1); SODIUM 140 mmol/L (136-145)
[~2018-06-25] MED LIST changes: +CEFAZOLIN SOD 1 GM/D5W 50ML 50 ML IV ONE; +DEXAMETHASONE SOD PHOS INJ 4 MG/ML VIAL ONE; +FENTANYL CITRATE/PF 100MCG/2 ML INJ ONE; +IOPAMIDOL 610MG/1ML 300 MG/ML VIAL IV ONE; +LIDOCAINE HCL 2% LOCAL INJ 5 ML SDV VIAL INJ ONE; +MIDAZOLAM HCL 2 MG/2 ML VIAL ONE; +ONDANSETRON HCL INJ 2 MG/ML VIAL ONE; +PROPOFOL IV EMULSION 10 MG/ML 20 ML VIAL ONE; +SEVOFLURANE INHAL SOLN 250 ML PEN BTL ONE
[2018-06-25 15:40] VITALS: BP 134/84
--- NOTE | 2018-06-26 12:15 | Operative Report ---
DATE OF PROCEDURE: June 25, 2018 SERVICE: Urology. PREOPERATIVE DIAGNOSES 1. Left nephrolithiasis. 2. Left hydronephrosis. 3. Left double-J stent. POSTOPERATIVE DIAGNOSES 1. Left nephrolithiasis. 2. Left hydronephrosis. 3. Left double-J stent. OPERATION PERFORMED 1. ESWL lithotripsy of left kidney stone. 2. Removal of double-J stent on the left side. 3. Left retrograde pyelograms under fluoroscopic control. 4. Placement of double-J stent 24 cm long. 5. Interpretation of x-ray. 6. Supervision of fluoroscopy. SOFTWARE QUALITY ANALYST: None. ANESTHESIA: General. CLINICAL INDICATION NOTE: This is a 48-year-old patient who has had a stone in the left kidney, hydronephrosis, and has a stent. She was brought for lithotripsy and change of stent. She knows that she will require additional procedures. Description of the procedure was discussed with her and accepted. DESCRIPTION OF PROCEDURE AND FINDINGS: After proper level of anesthesia was achieved, the patient was placed in supine position. The stone was brought to the focus of treatment and treated with 3000 shocks, the first 300 were at 60 per minute and then gradually was increased to 90 per minute and then to 120. The stone disintegrated well. Following this, the patient was positioned in lithotomy position, prepped and draped in a sterile fashion. Urethra inspected and unremarkable normal. Double J stent is protruding from the left ureteral orifice, was grasped and pulled out to the urethral meatus. A wire was passed, turn up, and there was a kinking or dilation of the ureter in the upper part just under the renal pelvis and was quite difficult to pass a Glidewire up into the kidney. This was quite dilated. This was followed by passing an open-ended catheter and a stiff wire. Retrograde pyelogram demonstrating significant hydro. Wire was kept in place and a double-J stent 24 cm long was placed. Proper position was verified by x-ray and endoscopy. Bladder was then irrigated. Scope was removed. Patient was transferred in satisfactory condition to recovery and followup was given. She will need additional procedure for further assessment of the hydronephrosis. Job#: [id number] [facility]
== END | disposition home or self-care (01) ==
LOC: OR 10:50
PROVIDERS: ATTEND Urology
DX: N20.0 Calculus of kidney (principal); N13.30 Unspecified hydronephrosis; I10 Essential (primary) hypertension; E11.9 Type 2 diabetes mellitus without complications; E78.00 Pure hypercholesterolemia, unspecified; F41.9 Anxiety disorder, unspecified; Z46.6 Encounter for fitting and adjustment of urinary device; Z01.810 Encounter for preprocedural cardiovascular examination; Z01.812 Encounter for preprocedural laboratory examination; Z88.1 Allergy status to other antibiotic agents; Z79.84 Long term (current) use of oral hypoglycemic drugs
CPT/HCPCS: 36415 ×2; 50590; 52332; 80048; 81025; 82948; 93005; C2617; J0690; J1100; J2001; J2250; J2405; J2704; Q9967

== ENCOUNTER → 2018-07-23 | Outpatient (CLI) | payer OTHER ==
[~2018-07-23] MED LIST changes: -CEFAZOLIN SOD 1 GM/D5W 50ML 50 ML IV ONE; -DEXAMETHASONE SOD PHOS INJ 4 MG/ML VIAL ONE; -FENTANYL CITRATE/PF 100MCG/2 ML INJ ONE; -IOPAMIDOL 610MG/1ML 300 MG/ML VIAL IV ONE; -LIDOCAINE HCL 2% LOCAL INJ 5 ML SDV VIAL INJ ONE; -MIDAZOLAM HCL 2 MG/2 ML VIAL ONE; -ONDANSETRON HCL INJ 2 MG/ML VIAL ONE; -PROPOFOL IV EMULSION 10 MG/ML 20 ML VIAL ONE; -SEVOFLURANE INHAL SOLN 250 ML PEN BTL ONE
--- NOTE | 2018-07-23 17:09 | Diagnostic Imaging Report ---
EXAM: Abdomen 2 Views and chest AP lateral INDICATION: ^[id number] ^1301 ^CALCULUS OF KIDNEY COMPARISON: KUB dated 04/26/2018 FINDINGS: Stable left nephroureteral stent. No calcification overlying renal shadows. There is a 0.7 cm calcification abutting the proximal left nephroureteral stent. Nonobstructive bowel gas pattern. No signs of pneumoperitoneum. Lungs are clear. No pleural effusion or pneumothorax. Normal cardiac silhouette. IMPRESSION: 1. No definite calcification overlying renal shadows. 2. 0.7 cm calcification abutting the proximal left nephroureteral stent. 3. Nonobstructive bowel gas pattern. Signed by: Dr. Rony Rhoades MD on 07/23/2018 5:05 PM
== END ==
LOC: RAD 12:40
PROVIDERS: ATTEND Urology
DX: N20.0 Calculus of kidney (principal)
CPT/HCPCS: 74018; 81025

== ENCOUNTER → 2018-08-09 | Day surgery (SDC) | payer OTHER ==
[2018-08-06 12:34] LABS: ANION GAP 13.7 mmol/L (8-16); BLOOD UREA NITROGEN 18 mg/dL (7-26); BUN/CREATININE RATIO 20 (6-25); CALCIUM 9.4 mg/dL (8.4-10.2); CARBON DIOXIDE 25 mmol/L (22-29); CHLORIDE 104 mmol/L (98-107); CREATININE, SERUM 0.89 mg/dL (0.57-1.11); EST GLOMERULAR FILTRATION RATE > 60 ML/MIN (60-); GLUCOSE 162 mg/dL (74-118); POTASSIUM 3.7 mmol/L (3.5-5.1); SODIUM 139 mmol/L (136-145)
[~2018-08-09] MED LIST changes: +BELLADONNA/OPIUM 30 MG SUPP RC ONE; +CEFAZOLIN SOD 2 GM/D5W 50ML 50 ML IV ONE; +DEXAMETHASONE SOD PHOS INJ 4 MG/ML VIAL ONE; +FENTANYL CITRATE/PF 100MCG/2 ML INJ ONE; +FLUCONAZOLE100 MG PO; +IOPAMIDOL 610MG/1ML 300 MG/ML VIAL IV ONE; +LIDOCAINE HCL 2% LOCAL INJ 5 ML SDV VIAL INJ ONE; +LOSARTAN-HCTZ1 EAC2 PO; +MEPERIDINE HCL INJ 25 MG/ML VIAL ONE; +MIDAZOLAM HCL 2 MG/2 ML VIAL ONE; +ONDANSETRON HCL INJ 2MG/ML 2ML 2 MG/ML VIAL ONE; +PROPOFOL IV EMULSION 10 MG/ML 20 ML VIAL ONE; +SEVOFLURANE INHAL SOLN 250 ML PEN BTL ONE
[2018-08-09 11:20] VITALS: BP 108/79
--- NOTE | 2018-08-09 16:34 | Operative Report ---
DATE OF PROCEDURE: August 09, 2018 SERVICE: Urology. PREOPERATIVE DIAGNOSES: 1. Left nephrolithiasis. 2. Left ureteral stricture. 3. Presence of double J stent on the left side. 4. Microhematuria. 5. Impacted stone on the left side. 6. Hydronephrosis, left. OPERATIONS PERFORMED: 1. Cystoscopy and right retrograde pyelograms. This is done for a different diagnosis for the microhematuria, not related to the findings on the other side. 2. Removal of double J stent from the left side. 3. Left retrograde pyelograms under fluoroscopic control. 4. Dilation of left ureter and ureteroscopy. 5. Fragmentation of stones with laser in the left renal pelvis and proximal ureter. 6. Placement of double J stent. 7. Supervision of x-ray. Radiologist not present. 8. Supervision of fluoroscopy. Radiologist not present. DRAFTING CLERK: None. ANESTHESIA: General. CLINICAL INDICATION NOTE: This is a 48-year-old patient who was treated for stones. In the left side she had a stent in place. The patient did have lithotripsy in the past. She does have some residual stones. She was brought for reassessment and possible laser fragmentation of the stones. Procedure was discussed with the patient beforehand, and she was advised that she may require again the stent. DESCRIPTION OF PROCEDURE AND FINDINGS: After proper level of anesthesia was achieved, the patient was placed in lithotomy position, prepped and draped in a sterile fashion. The urethra inspected, is unremarkable. The bladder outlet is normal. Bladder mucosa surrounding the left ureteral orifice is edematous secondary to the stent. Open-end catheter was inserted into the right side, and retrograde pyelogram demonstrating a normal upper collecting system and ureter on the right side. This was done for the microhematuria, not related to the contralateral side. Following this, the left double J stent was removed. Open-end catheter inserted. Attempt to passed into the renal pelvis was quite compromised by a stricture. It seemed that there were some fragments of stones which were impacted at that point. With some difficulty it was possible to negotiate a Glidewire up into the kidney, and this was followed by placement of two stiff wires. One of them will be served as a safety wire. Following this, flexible ureteroscopy was done. No stones were identified in the lower and mid ureter. At the bladder outlet there is an irregular-like stricture of the ureter that was dilated with a double lumen catheter, and following this, a Holmium laser 200 micron was used to fragment some small pieces of stone. The rest of them were pushed up into the pelvis. A wire was kept in place, and a 7-Tongan 24-cm-long double J stent was properly positioned on the left side. This was verified by x-ray and endoscopy. Patient tolerated procedure well and was transferred in satisfactory condition to the recovery room. Job#: [id number] EV
== END | disposition home or self-care (01) ==
LOC: OR 06:51
PROVIDERS: ATTEND Urology
DX: N20.0 Calculus of kidney (principal); N13.5 Crossing vessel and stricture of ureter without hydronephrosis; N13.30 Unspecified hydronephrosis; Z46.6 Encounter for fitting and adjustment of urinary device; I10 Essential (primary) hypertension; E78.00 Pure hypercholesterolemia, unspecified; E11.9 Type 2 diabetes mellitus without complications; F41.9 Anxiety disorder, unspecified; Z88.1 Allergy status to other antibiotic agents; Z01.812 Encounter for preprocedural laboratory examination; Z79.84 Long term (current) use of oral hypoglycemic drugs
CPT/HCPCS: 36415 ×2; 52344; 52356; 74420; 80048; 81025; 82948; C2617; J0690; J1100; J2001; J2175; J2250; J2405; J2704; Q9967

== ENCOUNTER → 2018-09-17 | Outpatient (CLI) | payer OTHER ==
[~2018-09-17] MED LIST changes: -BELLADONNA/OPIUM 30 MG SUPP RC ONE; -CEFAZOLIN SOD 2 GM/D5W 50ML 50 ML IV ONE; -DEXAMETHASONE SOD PHOS INJ 4 MG/ML VIAL ONE; -FENTANYL CITRATE/PF 100MCG/2 ML INJ ONE; -IOPAMIDOL 610MG/1ML 300 MG/ML VIAL IV ONE; -LIDOCAINE HCL 2% LOCAL INJ 5 ML SDV VIAL INJ ONE; -MEPERIDINE HCL INJ 25 MG/ML VIAL ONE; -MIDAZOLAM HCL 2 MG/2 ML VIAL ONE; -ONDANSETRON HCL INJ 2MG/ML 2ML 2 MG/ML VIAL ONE; -PROPOFOL IV EMULSION 10 MG/ML 20 ML VIAL ONE; -SEVOFLURANE INHAL SOLN 250 ML PEN BTL ONE
--- NOTE | 2018-09-17 11:47 | Diagnostic Imaging Report ---
EXAM: ABDOMEN-1VIEW (KUB) DATE: 09/17/2018 10:09 AM INDICATION: Kidney stone COMPARISON: KUB, 09/11/2017 FINDINGS: 2 supine views of the abdomen again show a left double-J ureteral stent extending from the kidney to the bladder. Previously noted calcification adjacent to the proximal aspect of the stent is no longer identified. No obvious calcifications are seen projected on either kidney or along the stent, although in some areas small calcifications might be obscured by overlying bone or bowel. There is a normal distribution of air scattered in small and large bowel. No acute bony abnormality. IMPRESSION: 1. No bowel dilatation or evidence for obstruction. 2. Stable position of left double-J ureteral stent. 3. Previously noted calcification adjacent to the proximal aspect of the stent is no longer seen. Signed by: Dr. Layo Miramontes M.D. on 09/17/2018 11:44 AM
== END ==
LOC: RAD 10:03
PROVIDERS: ATTEND Urology
DX: N20.0 Calculus of kidney (principal)
CPT/HCPCS: 74018; 81025

== ENCOUNTER → 2018-10-14 | Day surgery (SDC) | payer OTHER ==
[2018-10-13 10:46] LABS: ANION GAP 11.8 mmol/L (8-16); BLOOD UREA NITROGEN 15 mg/dL (7-26); BUN/CREATININE RATIO 19 (6-25); CALCIUM 9.3 mg/dL (8.4-10.2); CARBON DIOXIDE 23 mmol/L (22-29); CHLORIDE 103 mmol/L (98-107); CREATININE, SERUM 0.79 mg/dL (0.57-1.11); EST GLOMERULAR FILTRATION RATE > 60 ML/MIN (60-); GLUCOSE 121 mg/dL (74-118); POTASSIUM 3.8 mmol/L (3.5-5.1); SODIUM 134 mmol/L (136-145)
[~2018-10-14] MED LIST changes: +CEFAZOLIN SOD 1 GM/NS 50ML 50 ML IV ONE; +DEXAMETHASONE SOD PHOS INJ 4 MG/ML VIAL ONE; +FENTANYL CITRATE/PF 100MCG/2 ML INJ ONE; +IOPAMIDOL 610MG/1ML 300 MG/ML VIAL IV ONE; +LIDOCAINE HCL 2% LOCAL INJ 5 ML SDV VIAL INJ ONE; +MIDAZOLAM HCL 2 MG/2 ML VIAL ONE; +ONDANSETRON HCL INJ 2MG/ML 2ML 2 MG/ML VIAL ONE; +PROPOFOL IV EMULSION 10 MG/ML 20 ML VIAL ONE; +SEVOFLURANE INHAL SOLN 250 ML PEN BTL ONE
[2018-10-14 13:55] VITALS: BP 122/75
--- NOTE | 2018-10-15 01:09 | Operative Report ---
DATE OF PROCEDURE: 10/14/2018 SURGEON: Lukasz Mosley MD SERVICE: Urology. PREOPERATIVE DIAGNOSES: 1. Left hydronephrosis. 2. Left double-J stent. 3. Urinary tract infection. 4. Microhematuria. 5. Left hydronephrosis and question of ureteropelvic junction. OPERATIONS PERFORMED: 1. Cystoscopy and right retrograde pyelogram on fluoroscopic control. This has no connection to the contralateral side, done with different instruments. 2. Removal of double-J stent from the left side. 3. Left retrograde pyelogram under fluoroscopic control. 4. Left ureteroscopy with Holmium laser fragmentation of small calculi. 5. Interpretation of x-ray, radiologist not present. 6. Supervision of fluoroscopy, radiologist not present. DIRECTOR OF EXHIBITS: None. ANESTHESIA: General. CLINICAL INDICATION NOTE: This is a 48-year-old patient, who is brought for reassessment of nephrolithiasis and treatment. She has a double-J stent to the left side and some hydronephrosis. Procedures were discussed with the patient and she is aware of the procedure, potential benefits and complications. DESCRIPTION OF PROCEDURE AND FINDINGS: After appropriate level of anesthesia was achieved, the patient was placed in lithotomy position, prepped and draped in the usual sterile fashion. Urethra was inspected and is unremarkable. Bladder outlet is normal. The bladder mucosa is normal. Double-J stent is protruding to the left ureteral orifice. Open-ended catheter was inserted to the right side and retrograde pyelogram demonstrated no significant problem on that side, drainage was prompt. Following this, the double-J stent was removed from the left side, open-ended catheter was inserted. Retrograde pyelogram demonstrating relative narrowing at the UPJ and some dilation of the upper collecting system. The ureter is freed. The guide was kept in place and a flexible ureteroscopy was done. Small calculi were identified and fragmented with Holmium laser using a 200 fiber at 8 hogan. Selected to not to leave the double-J stent. The bladder was then irrigated, the scope was removed, and the patient was transferred in satisfactory condition to recovery. Postoperative instructions given as well as followup. Lukasz Mosley MD VT/MODL /[id number]
== END | disposition home or self-care (01) ==
LOC: OR 10:26
PROVIDERS: ATTEND Urology
DX: N13.30 Unspecified hydronephrosis (principal); Z46.6 Encounter for fitting and adjustment of urinary device; N20.1 Calculus of ureter; N39.0 Urinary tract infection, site not specified; I10 Essential (primary) hypertension; E11.9 Type 2 diabetes mellitus without complications; Z88.1 Allergy status to other antibiotic agents; Z01.810 Encounter for preprocedural cardiovascular examination; Z01.812 Encounter for preprocedural laboratory examination; Z79.84 Long term (current) use of oral hypoglycemic drugs
CPT/HCPCS: 36415 ×2; 52353; 74420; 80048; 81025; 82948; 93005; C1758; J0690; J1100; J2001; J2250; J2405; J2704; Q9967